=== PATIENT | male | born 1985 | race Caucasian/White ===

== ENCOUNTER 2017-10-28 18:01 | Inpatient (IN) | payer SELFPAY ==
[~2017-10-28] VITALS: Ht 170.2 cm; Wt 69.4 kg
--- OUTSIDE RECORDS SUMMARY | 2017-10-28 18:11 | XMS REPORT ---
Author Author GUICHO NUNES [facility] eClinicalWorks Address Unknown Phone Unavailable Care Team Providers Care Jukebox Routeman Name Role Phone GUICHO NUNES CP Unavailable Allergies, Adverse Reactions, Alerts Substance Reaction Event Type N.K.D.A. Info Not Available Non Drug Allergy Problems Problem Type Condition Code Onset Dates Condition Status Assessment Irritant contact dermatitis due to other agents L24.89 Active Medications Medication Code System Code Instructions Start Date End Date Status Dosage Triamcinolone Acetonide [facility] [id number] 0.1 % Externally Twice a day Jun 07, 2016 1 application to affected area Procedures Procedure Coding System Code Date Office Visit, Est Pt., Level 2 CPT-4 43855 Jun 07, 2016 Vital Signs Date/Time: Jun 07, 2016 Cardiac Monitoring Heart Rate 62 bpm Weight 154 lbs Height 64 in BMI 26.43 Index Blood Pressure Diastolic 72 mmHg Blood Pressure Systolic 98 mmHg Results No Known Results Summary Purpose eClinicalWorks Submission
--- OUTSIDE RECORDS SUMMARY | 2017-10-28 18:11 | XMS REPORT ---
Author Author MIAH CASANOVA Organization eClinicalWorks Address Unknown Phone Unavailable Care Team Providers Care Stove Mounter Name Role Phone MIAH CASANOVA CP Unavailable Allergies No Known Allergies Problems Problem Type Condition ICD-9 Code Onset Dates Condition Status Assessment Dental examination V72.2 Active Medications No Known Medications Procedures Procedure Coding System Code Date INTRAORL-PERIAPICAL 1 FILM 69757 CPT-4 D0220 Jun 24, 2015 INTRAORL-PERIAPICAL EA ADD FILM CPT-4 D0230 Jun 24, 2015 LTD ORAL EVALUATION - PROBLEM FOCUS CPT-4 D0140 Jun 24, 2015 Results No Known Results Summary Purpose eClinicalWorks Submission
--- OUTSIDE RECORDS SUMMARY | 2017-10-28 18:11 | XMS REPORT ---
Author Author GUICHO NUNES [facility] Address [address] [place] [address] Care Team Providers Care Concession Cashier Name Role Phone GUICHO NUNES Unavailable PROBLEMS Unknown Problems ALLERGIES No Information SOCIAL HISTORY Never Assessed PLAN OF CARE VITAL SIGNS MEDICATIONS Unknown Medications RESULTS No Results PROCEDURES No Known procedures IMMUNIZATIONS No Known Immunizations
[2017-10-28] MEDS ORDERED: LACTATED RINGERS 1,000 ML IV ONE (18:26)
[2017-10-28] MEDS ORDERED: NS IV 500 ML 500 ML IV ONE ×2 (18:26→22:15)
[2017-10-28] MEDS ORDERED: PIPERACILLIN SODIUM/TAZOBACTAM 4.5 GM in NS (IVPB) 100 ML IV ONE (18:30)
[2017-10-28] MEDS ORDERED: ONDANSETRON 4 MG/2 ML (SDV) Z0FRAN IVP ONE (18:30)
[2017-10-28] MEDS ORDERED: fentaNYL INJECTION 100 MCG/2 ML AMP IVP ONE ×2 (18:30→19:45)
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
[2017-10-28 18:40] LABS: BASOPHILS # (AUTO) 0.1 10^3/uL (0.0-0.1); BASOPHILS % (AUTO) 0 % (0-10); EOSINOPHILS # (AUTO) 0.1 10^3/uL (0.0-0.3); EOSINOPHILS % (AUTO) 0 % (0-10); HEMATOCRIT 37 % (40-54); HEMOGLOBIN 13.1 G/DL (13.3-17.7); LYMPHOCYTES # (AUTO) 0.9 X 10^3 (1.0-4.0); LYMPHOCYTES % (AUTO) 3 % (12-44); MEAN CORPUSCULAR HEMOGLOBIN 29 PG (25-34); MEAN CORPUSCULAR HGB CONC 35 G/DL (32-36); MEAN CORPUSCULAR VOLUME 83 FL (80-99); MEAN PLATELET VOLUME 10.1 FL (7.4-10.4); MONOCYTES # (AUTO) 1.8 X 10^3 (0.0-1.0); MONOCYTES % (AUTO) 6 % (0-12); NEUTROPHILS % (AUTO) 91 % (42-75); PLATELET COUNT 236 10^3/uL (130-400); RED BLOOD COUNT 4.46 10^6/uL (4.35-5.85); RED CELL DISTRIBUTION WIDTH 13.3 % (10.0-14.5)
[2017-10-28 18:43] LABS: WHITE BLOOD COUNT 31.7 10^3/uL (4.3-11.0)
[2017-10-28 18:49] LABS: INR 1.3 (0.8-1.4); PROTHROMBIN TIME PATIENT 16.4 SEC (12.2-14.7)
[2017-10-28 18:52] LABS: FIBRIN DEGRADATION PRODUCTS 0.96 UG/ML (0.00-0.49)
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
--- NOTE | 2017-10-28 18:57 | Diagnostic Imaging Report ---
INDICATION: Septic. COMPARISON: None. FINDINGS: Single view of the chest demonstrates clear lungs bilaterally. The heart is normal. There is no pneumothorax. Osseous structures normal. IMPRESSION: Negative chest. Dictated by: Dictated on workstation # [id number]
[2017-10-28 18:58] LABS: ALANINE AMINOTRANSFERASE 34 U/L (0-55); ALBUMIN 3.4 GM/DL (3.2-4.5); ALKALINE PHOSPHATASE 100 U/L (40-136); BILIRUBIN,TOTAL 0.8 MG/DL (0.1-1.0); BUN/CREATININE RATIO 14; CALCIUM 8.9 MG/DL (8.5-10.1); CARBON DIOXIDE 22 MMOL/L (21-32); CHLORIDE 99 MMOL/L (98-107); CREATININE SERUM 0.91 MG/DL (0.60-1.30); GFR ESTIMATED > 60; GLUCOSE 159 MG/DL (70-105); SODIUM 133 MMOL/L (135-145); TOTAL PROTEIN 6.6 GM/DL (6.4-8.2)
[2017-10-28 19:00] LABS: BAND NEUTROPHILS 47 %; BASOPHILS % (MANUAL) 0 %; EOSINOPHILS % (MANUAL) 0 %; LYMPHOCYTES % (MANUAL) 3 %; MONOCYTES % (MANUAL) 7 %; NEUTROPHILS % (MANUAL) 46 %
[2017-10-28 19:01] LABS: RBC MORPH NORMAL; TOXIC GRANULATION/VACUOLAZATIO 2+
[2017-10-28] MEDS ORDERED: KCL 10 MEQ TAB (MICRO K) PO ONE (19:30)
[2017-10-28 20:20] VITALS: BP 102/61
[2017-10-28] MEDS ORDERED: ACETAMINOPHEN 500 MG TAB (TYLENOL) ONE (20:29)
[2017-10-28] MEDS ORDERED: VANCOMYCIN 1500 MG/NS 500 ML IVPB IV NR ×2 (20:31)
[2017-10-28] MEDS: ACETAMINOPHEN 500 MG TAB (TYLENOL) PO PRN (20:32)
--- NOTE | 2017-10-28 20:42 | Diagnostic Imaging Report ---
PROCEDURE: US venous upper extremity, left. TECHNIQUE: Multiple realtime grayscale images were obtained of left upper extremity in various projections. Duplex Doppler and and color Doppler images were also obtained. INDICATION: Left upper extremity swelling and pain. COMPARISON: None. FINDINGS: Visualized deep and superficial venous system is patent. There is no mass or DVT. No hematoma identified. There is a nonspecific pulsatile venous system which is likely normal for age. If there is additional concern for vascular injury a CTA may be obtained. IMPRESSION: 1. Negative left upper extremity venous Doppler. No DVT identified. 2. No organized hematoma present. Dictated by: Dictated on workstation # [id number]
[2017-10-28] MEDS: NS IV 1000 ML 1,000 ML IV SCH (20:44)
[2017-10-28] MEDS ORDERED: NS IV 500 ML 500 ML IV SCH (22:15)
[2017-10-29] VITALS (7 sets, daily range): BP systolic 90–134; BP diastolic 51–69
[2017-10-29] MEDS: IBUPROFEN 800 MG (MOTRIN) TAB PO PRN ×2 (00:29→14:24)
[2017-10-29] MEDS: PIPERACILLIN/TAZOBACTAM 4.5 GM/NS 100 ML IVPB IV SCH ×6 (00:29→17:28)
[2017-10-29] MEDS: fentaNYL INJECTION 100 MCG/2 ML AMP IV PRN ×2 (00:29→23:36)
[2017-10-29] MEDS: NS IV 1000 ML 1,000 ML IV SCH ×4 (03:34→20:54)
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
[2017-10-29 06:11] LABS: BASOPHILS # (AUTO) 0.1 10^3/uL (0.0-0.1); BASOPHILS % (AUTO) 0 % (0-10); EOSINOPHILS # (AUTO) 0.1 10^3/uL (0.0-0.3); EOSINOPHILS % (AUTO) 1 % (0-10); HEMATOCRIT 33 % (40-54); HEMOGLOBIN 11.6 G/DL (13.3-17.7); LYMPHOCYTES # (AUTO) 1.1 X 10^3 (1.0-4.0); LYMPHOCYTES % (AUTO) 5 % (12-44); MEAN CORPUSCULAR HEMOGLOBIN 29 PG (25-34); MEAN CORPUSCULAR HGB CONC 35 G/DL (32-36); MEAN CORPUSCULAR VOLUME 84 FL (80-99); MEAN PLATELET VOLUME 10.5 FL (7.4-10.4); MONOCYTES # (AUTO) 1.2 X 10^3 (0.0-1.0); MONOCYTES % (AUTO) 5 % (0-12); NEUTROPHILS # (AUTO) 21.4 X 10^3 (1.8-7.8); NEUTROPHILS % (AUTO) 90 % (42-75); PLATELET COUNT 187 10^3/uL (130-400); RED BLOOD COUNT 3.96 10^6/uL (4.35-5.85); RED CELL DISTRIBUTION WIDTH 13.5 % (10.0-14.5); WHITE BLOOD COUNT 23.8 10^3/uL (4.3-11.0)
[2017-10-29 06:36] LABS: ALANINE AMINOTRANSFERASE 23 U/L (0-55); ALBUMIN 2.7 GM/DL (3.2-4.5); ALKALINE PHOSPHATASE 77 U/L (40-136); BILIRUBIN,TOTAL 0.9 MG/DL (0.1-1.0); BUN/CREATININE RATIO 18; CALCIUM 7.8 MG/DL (8.5-10.1); CARBON DIOXIDE 18 MMOL/L (21-32); CHLORIDE 106 MMOL/L (98-107); GFR ESTIMATED > 60; GLUCOSE 83 MG/DL (70-105); MAGNESIUM 1.3 MG/DL (1.8-2.4); POTASSIUM 3.2 MMOL/L (3.6-5.0); SODIUM 136 MMOL/L (135-145); TOTAL PROTEIN 5.1 GM/DL (6.4-8.2)
[2017-10-29] MEDS ORDERED: INFLUENZA TRIvalent 2017-2018 0.5 ML/45 MCG SYR IM ONE (07:30)
[2017-10-29] MEDS ORDERED: MAGNESIUM 1 GM/100 ML IVPB 100 ML IV SCH (08:00)
[2017-10-29] MEDS ORDERED: KCL 20 MEQ TAB (K-DUR) PO NR (08:00)
[2017-10-29] MEDS: VANCOMYCIN 1 GM/NS 250 ML IVPB IV SCH ×4 (09:31→20:54)
[2017-10-29] MEDS: ENOXAPARIN 40 MG/0.4 ML (LOVENOX) SYR SC SCH (18:50)
[2017-10-30] VITALS: BP 107/55
[2017-10-30] MEDS: PIPERACILLIN/TAZOBACTAM 4.5 GM/NS 100 ML IVPB IV SCH ×10 (00:19→23:38)
[2017-10-30] MEDS: IBUPROFEN 800 MG (MOTRIN) TAB PO PRN ×2 (00:19→14:17)
[2017-10-30] MEDS: NS IV 1000 ML 1,000 ML IV SCH ×4 (02:40→21:31)
[2017-10-30 04:00] VITALS: BP 96/55
[2017-10-30] MEDS ORDERED: TROUGH ORDER-PHARMACY XX NR (07:30)
[2017-10-30 08:07] VITALS: BP 98/59
[2017-10-30 08:17] LABS: BASOPHILS # (AUTO) 0.1 10^3/uL (0.0-0.1); BASOPHILS % (AUTO) 0 % (0-10); EOSINOPHILS # (AUTO) 0.4 10^3/uL (0.0-0.3); EOSINOPHILS % (AUTO) 2 % (0-10); HEMATOCRIT 32 % (40-54); HEMOGLOBIN 11.6 G/DL (13.3-17.7); LYMPHOCYTES # (AUTO) 1.6 X 10^3 (1.0-4.0); LYMPHOCYTES % (AUTO) 5 % (12-44); MEAN CORPUSCULAR HEMOGLOBIN 30 PG (25-34); MEAN CORPUSCULAR HGB CONC 36 G/DL (32-36); MEAN CORPUSCULAR VOLUME 83 FL (80-99); MEAN PLATELET VOLUME 10.5 FL (7.4-10.4); MONOCYTES # (AUTO) 1.1 X 10^3 (0.0-1.0); MONOCYTES % (AUTO) 4 % (0-12); NEUTROPHILS # (AUTO) 26.4 X 10^3 (1.8-7.8); NEUTROPHILS % (AUTO) 89 % (42-75); PLATELET COUNT 220 10^3/uL (130-400); RED BLOOD COUNT 3.92 10^6/uL (4.35-5.85); RED CELL DISTRIBUTION WIDTH 13.9 % (10.0-14.5); WHITE BLOOD COUNT 29.6 10^3/uL (4.3-11.0)
[2017-10-30 08:39] LABS: ALANINE AMINOTRANSFERASE 22 U/L (0-55); ALBUMIN 2.4 GM/DL (3.2-4.5); ALKALINE PHOSPHATASE 88 U/L (40-136); BILIRUBIN,TOTAL 0.5 MG/DL (0.1-1.0); BUN/CREATININE RATIO 17; CALCIUM 7.9 MG/DL (8.5-10.1); CARBON DIOXIDE 18 MMOL/L (21-32); CHLORIDE 108 MMOL/L (98-107); CREATININE SERUM 0.66 MG/DL (0.60-1.30); GFR ESTIMATED > 60; GLUCOSE 84 MG/DL (70-105); POTASSIUM 2.9 MMOL/L (3.6-5.0); SODIUM 137 MMOL/L (135-145)
[2017-10-30] MEDS: VANCOMYCIN INJECTION 1,250 MG in NS (IVPB) 250 ML IV SCH ×2 (09:37→17:05)
[2017-10-30 12:04] VITALS: BP 113/60
[2017-10-30] MEDS: ACETAMINOPHEN 500 MG TAB (TYLENOL) PO PRN (13:00)
--- NOTE | 2017-10-30 14:22 | Progress Note (SOAP) ---
Subjective Subjective/Events-last exam Patient reports feeling feverish at the time of exam - temp was checked and is 100.5. He denies pain in his arm, just reports that it feels "tight" from the swelling. Temp was as high as 103 yesterday. No other complaints or concerns from patient. No concerns from nursing staff. Review of Systems Date Seen by Provider: Oct 30, 2017 Time Seen by Provider: 12:05 General: Chills, Night Sweats, Malaise HEENT: Head Aches (only with fever), No Visual Changes, No Eye Pain, No Sinus Congestion Pulmonary: No Dyspnea, No Cough Cardiovascular: Edema (left arm), No: Chest Pain, Palpitations, Orthopnea Gastrointestinal: No: Nausea, Vomiting Genitourinary: No Dysuria, No Incontinence Musculoskeletal: arm pain Neurological: No: Weakness, Numbness Objective Exam Last Set of Vital Signs Vital Signs Date Time Temp Pulse Resp B/P (MAP) Pulse Ox O2 Delivery O2 Flow Rate FiO2 10/30/17 14:17 101.5 10/30/17 12:04 113 18 113/60 (77) 97 Room Air Capillary Refill : Less Than 3 Seconds I&O Intake and Output 10/30/17 00:00 Intake Total 2690 ml Output Total 300 ml Balance 2390 ml Intake Oral 1140 ml IV Total 1550 ml Output Urine Total 300 ml # Voids 5 General: Alert, Oriented X3, Cooperative, No Acute Distress HEENT: Atraumatic, PERRLA, EOMI, Mucous Memb Moist/[place] Neck: Supple, No JVD, No Thyromegaly Lungs: Clear to Auscultation, Normal Air Movement Heart: Regular Rate, Normal S1, Normal S2, No Murmurs Abdomen: Normal Bowel Sounds, Soft, No Tenderness, No Hepatosplenomegaly Extremities: No Clubbing, No Cyanosis, Other (left arm swollen and tender to palpation on the inner aspect) Skin: No Breakdown, Other (redness on inner aspect of left upper arm) Neuro: Normal Gait, Normal Speech, Normal Tone, Sensation Intact, Cranial Nerves 3-12 NL Psych/Mental Status: Mental Status NL, Mood NL Results/Procedures Lab Laboratory Tests 10/30/17 07:48: White Blood Count 29.6H, Red Blood Count 3.92L, Hemoglobin 11.6L, Hematocrit 32L , Mean Corpuscular Volume 83, Mean Corpuscular Hemoglobin 30, Mean Corpuscular Hemoglobin Concent 36, Red Cell Distribution Width 13.9, Platelet Count 220, Mean Platelet Volume 10.5H, Neutrophils (%) (Auto) 89H, Lymphocytes (%) (Auto) 5L, Monocytes (%) (Auto) 4, Eosinophils (%) (Auto) 2, Basophils (%) (Auto) 0, Neutrophils # (Auto) 26.4H, Lymphocytes # (Auto) 1.6, Monocytes # (Auto) 1.1H, Eosinophils # (Auto) 0.4H, Basophils # (Auto) 0.1, Sodium Level 137, Potassium Level 2.9L, Chloride Level 108H, Carbon Dioxide Level 18L, Anion Gap 11, Blood Urea Nitrogen 11, Creatinine 0.66, Estimat Glomerular Filtration Rate > 60, BUN/ Creatinine Ratio 17, Glucose Level 84, Calcium Level 7.9L, Total Bilirubin 0.5, Aspartate Amino Transf (AST/SGOT) 19, Alanine Aminotransferase (ALT/SGPT) 22, Alkaline Phosphatase 88, C-Reactive Protein High Sensitivity > 15.00H, Total Protein 5.0L, Albumin 2.4L, Vancomycin Level Trough 6.4L Microbiology 10/28/17 Blood Culture - Preliminary, Resulted No growth Assessment/Plan Assessment/Plan Admission Dx Sepsis secondary to Cellulitis Cellulitis of Left Arm 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 Plan Sepsis secondary to cellulitis: 10/29: -started on Vanc and Zosyn in ED, currently on Day 2 -significantly elevated WBC count as well as left shift -no evidence of clot or abscess noted on imaging studies -afebrile since admission -initially elevated lactate, which responded to fluid bolus and is now WNL -ibuprofen, fentanyl, tylenol PRN pain - last doses given at around midnight -culture results pending, will narrow abx therapy when results returned -CRP >15 -Left arm edema, will wrap with compression to see if that helps; pt reports that his left upper arm is always slightly swollen since his surgery, but currently his swelling extends into his forearm as well 10/30: -blood cx show no growth to date, white count elevated from yesterday, CRP remains >15, febrile to Tmax 103 yesterday afternoon, will continue Zosyn, recheck labs in AM Hypokalemia 10/30: replace with 40 mEq PO, recheck BMP in AM Hypocalcemia 10/30: recheck BMP in AM Hypoalbuminemia DVT Ppx: Lovenox, SCDs, Ambulation FEN: Regular Diet Dispo: Due to sepsis, patient requires inpatient level of care for IV antibiotics at this time; anticipate the patient will require another 24-48 hours before being able to safely transition to PO antibiotics and be discharged to home. Clinical Quality Measures DVT/VTE Risk/Contraindication: Risk Factor Score Per Nursin RFS Level Per Nursing on Admit: 4+=Very High RAGHU LLOYD DO Oct 30, 2017 14:22
[2017-10-30] MEDS ORDERED: KCL 20 MEQ TAB (K-DUR) PO NR (14:45)
[2017-10-30 16:34] VITALS: BP 109/70
[2017-10-30] MEDS: ENOXAPARIN 40 MG/0.4 ML (LOVENOX) SYR SC SCH (17:06)
[2017-10-30 19:56] VITALS: BP 102/69
[2017-10-31] VITALS (7 sets, daily range): BP systolic 91–120; BP diastolic 51–66
[2017-10-31] MEDS: IBUPROFEN 800 MG (MOTRIN) TAB PO PRN ×2 (00:43→16:09)
[2017-10-31] MEDS: VANCOMYCIN INJECTION 1,250 MG in NS (IVPB) 250 ML IV SCH ×3 (00:44→17:37)
[2017-10-31] MEDS: NS IV 1000 ML 1,000 ML IV SCH ×3 (00:46→15:57)
[2017-10-31] MEDS: ACETAMINOPHEN 500 MG TAB (TYLENOL) PO PRN ×2 (01:23→16:08)
[2017-10-31 05:55] LABS: BASOPHILS # (AUTO) 0.1 10^3/uL (0.0-0.1); BASOPHILS % (AUTO) 0 % (0-10); EOSINOPHILS # (AUTO) 0.4 10^3/uL (0.0-0.3); EOSINOPHILS % (AUTO) 1 % (0-10); HEMATOCRIT 32 % (40-54); HEMOGLOBIN 11.3 G/DL (13.3-17.7); LYMPHOCYTES % (AUTO) 7 % (12-44); MEAN CORPUSCULAR HEMOGLOBIN 29 PG (25-34); MEAN CORPUSCULAR HGB CONC 36 G/DL (32-36); MEAN CORPUSCULAR VOLUME 82 FL (80-99); MEAN PLATELET VOLUME 10.5 FL (7.4-10.4); MONOCYTES # (AUTO) 1.4 X 10^3 (0.0-1.0); MONOCYTES % (AUTO) 5 % (0-12); NEUTROPHILS # (AUTO) 25.2 X 10^3 (1.8-7.8); NEUTROPHILS % (AUTO) 87 % (42-75); PLATELET COUNT 248 10^3/uL (130-400); RED BLOOD COUNT 3.85 10^6/uL (4.35-5.85)
[2017-10-31 06:18] LABS: ALANINE AMINOTRANSFERASE 25 U/L (0-55); ALBUMIN 2.2 GM/DL (3.2-4.5); ALKALINE PHOSPHATASE 116 U/L (40-136); BILIRUBIN,TOTAL 0.6 MG/DL (0.1-1.0); BUN/CREATININE RATIO 15; CALCIUM 7.8 MG/DL (8.5-10.1); CARBON DIOXIDE 18 MMOL/L (21-32); CHLORIDE 109 MMOL/L (98-107); CREATININE SERUM 0.62 MG/DL (0.60-1.30); GFR ESTIMATED > 60; GLUCOSE 82 MG/DL (70-105); POTASSIUM 2.8 MMOL/L (3.6-5.0); SODIUM 138 MMOL/L (135-145); TOTAL PROTEIN 4.8 GM/DL (6.4-8.2)
[2017-10-31] MEDS ORDERED: TROUGH ORDER-PHARMACY XX NR ×2 (08:00→16:00)
--- NOTE | 2017-10-31 08:37 | Progress Note (SOAP) ---
Subjective Subjective/Events-last exam Patient denies complaints and is hoping to go home. Febrile to 101.7 overnight. Patient feels arm is less swollen than yesterday. Has developed surface blister near inner aspect of elbow where it has been resting on pillow. Other than fever, no acute events overnight. No concerns from nursing staff. Review of Systems Date Seen by Provider: Oct 31, 2017 Time Seen by Provider: 12:00 General: Chills, No Fatigue, No Malaise HEENT: No Head Aches, No Dysphasia, No Sore Throat Pulmonary: No Dyspnea, No Cough Cardiovascular: Edema (left upper extremity), No: Chest Pain, Palpitations Gastrointestinal: No: Nausea, Vomiting, Abdominal Pain Genitourinary: No Dysuria, No Frequency Musculoskeletal: arm pain (left arm), No: neck pain, shoulder pain, back pain, leg pain Neurological: No: Weakness, Numbness, Incoordination, Change in speech, Seizures Objective Exam Last Set of Vital Signs Vital Signs Date Time Temp Pulse Resp B/P (MAP) Pulse Ox O2 Delivery O2 Flow Rate FiO2 10/31/17 08:19 97.7 84 18 91/57 (68) 99 Room Air Capillary Refill : Less Than 3 Seconds I&O Intake and Output 10/31/17 00:00 Intake Total 3400 ml Output Total 600 ml Balance 2800 ml Intake Oral 1050 ml IV Total 2350 ml Output Urine Total 600 ml # Voids 3 General: Alert, Oriented X3, Cooperative, No Acute Distress HEENT: Atraumatic, PERRLA, EOMI, Mucous Memb Moist/[place] Neck: Supple, No JVD, No Thyromegaly Lungs: Clear to Auscultation, Normal Air Movement Heart: Regular Rate, Normal S1, Normal S2, No Murmurs Abdomen: Normal Bowel Sounds, Soft, No Tenderness Extremities: No Clubbing, No Cyanosis, Normal Pulses, Other (left arm swollen with mild warmth and erythema; improved from previous days) Skin: No Rashes, Other (fluid filled ~2 cm blister on inner aspect of forearm near elbow) Neuro: Normal Speech, Normal Tone, Sensation Intact, Cranial Nerves 3-12 NL Psych/Mental Status: Mental Status NL, Mood NL Results/Procedures Lab Laboratory Tests 10/31/17 05:33: White Blood Count 29.0H, Red Blood Count 3.85L, Hemoglobin 11.3L, Hematocrit 32L , Mean Corpuscular Volume 82, Mean Corpuscular Hemoglobin 29, Mean Corpuscular Hemoglobin Concent 36, Red Cell Distribution Width 14.0, Platelet Count 248, Mean Platelet Volume 10.5H, Neutrophils (%) (Auto) 87H, Lymphocytes (%) (Auto) 7L, Monocytes (%) (Auto) 5, Eosinophils (%) (Auto) 1, Basophils (%) (Auto) 0, Neutrophils # (Auto) 25.2H, Lymphocytes # (Auto) 2.0, Monocytes # (Auto) 1.4H, Eosinophils # (Auto) 0.4H, Basophils # (Auto) 0.1, Sodium Level 138, Potassium Level 2.8L, Chloride Level 109H, Carbon Dioxide Level 18L, Anion Gap 11, Blood Urea Nitrogen 9, Creatinine 0.62, Estimat Glomerular Filtration Rate > 60, BUN/ Creatinine Ratio 15, Glucose Level 82, Calcium Level 7.8L, Total Bilirubin 0.6, Aspartate Amino Transf (AST/SGOT) 24, Alanine Aminotransferase (ALT/SGPT) 25, Alkaline Phosphatase 116, C-Reactive Protein High Sensitivity > 15.00H, Total Protein 4.8L, Albumin 2.2L 10/31/17 08:20: Microbiology 10/28/17 Blood Culture - Preliminary, Resulted No growth Assessment/Plan Assessment/Plan Admission Dx Sepsis Left Arm Cellulitis Fever Plan Sepsis secondary to cellulitis: 10/29: -started on Vanc and Zosyn in ED, currently on Day 2 -significantly elevated WBC count as well as left shift -no evidence of clot or abscess noted on imaging studies -afebrile since admission -initially elevated lactate, which responded to fluid bolus and is now WNL -ibuprofen, fentanyl, tylenol PRN pain - last doses given at around midnight -culture results pending, will narrow abx therapy when results returned -CRP >15 -Left arm edema, will wrap with compression to see if that helps; pt reports that his left upper arm is always slightly swollen since his surgery, but currently his swelling extends into his forearm as well 10/30: -blood cx show no growth to date, white count elevated from yesterday, CRP remains >15, febrile to Tmax 103 yesterday afternoon, will continue Zosyn and Vanc, recheck labs in AM 10/31: blood cx continue to show no growth to date, white count remains elevated at 29, but stable from yesterday, CRP remains >15, febrile overnight with Tmax 101.7; US done to rule out abscess --> no evidence of abscess. Given that fevers seem to be somewhat improved from previous and Vanc dosing was adjusted after subtherapeutic level, will continue with current broad spectrum abx, recheck labs in AM. Hypokalemia 10/30: replace with 40 mEq PO, recheck BMP in AM 10/31: remains low, replaced again today and recheck in AM Hypocalcemia 10/30: recheck BMP in AM Hypoalbuminemia DVT Ppx: Lovenox, SCDs, Ambulation FEN: Regular Diet Dispo: Due to sepsis, patient requires inpatient level of care for IV antibiotics at this time; anticipate the patient will require another 24-48 hours before being able to safely transition to PO antibiotics and be discharged to home. Clinical Quality Measures DVT/VTE Risk/Contraindication: Risk Factor Score Per Nursin RFS Level Per Nursing on Admit: 4+=Very High RAGHU LLOYD DO Oct 31, 2017 08:37
[2017-10-31] MEDS ORDERED: KCL 20 MEQ TAB (K-DUR) PO NR (08:45)
[2017-10-31] MEDS: PIPERACILLIN/TAZOBACTAM 4.5 GM/NS 100 ML IVPB IV SCH ×4 (08:54→15:58)
--- NOTE | 2017-10-31 11:10 | Diagnostic Imaging Report ---
INDICATION: Fever. Evaluate for abscess. FINDINGS: Grayscale imaging of the left upper arm and axillary region demonstrates a large degree of subcutaneous edema but no focal fluid collection to suggest abscess. IMPRESSION: 1. Sonographic imaging of the left upper arm and axillary region demonstrates edema but no focal fluid collection to suggest abscess. Dictated by: Dictated on workstation # [id number]
[2017-10-31] MEDS: ENOXAPARIN 40 MG/0.4 ML (LOVENOX) SYR SC SCH (17:37)
[2017-11-01] MEDS: VANCOMYCIN INJECTION 1,250 MG in NS (IVPB) 250 ML IV SCH ×2 (00:23→08:53)
[2017-11-01 00:41] VITALS: BP 116/67
[2017-11-01] MEDS: PIPERACILLIN/TAZOBACTAM 4.5 GM/NS 100 ML IVPB IV SCH ×4 (00:45→08:53)
[2017-11-01] MEDS: IBUPROFEN 800 MG (MOTRIN) TAB PO PRN ×2 (03:33→10:40)
[2017-11-01 04:45] VITALS: BP 109/64
[2017-11-01] MEDS: ACETAMINOPHEN 500 MG TAB (TYLENOL) PO PRN ×3 (05:55→21:23)
[2017-11-01] MEDS: NS IV 1000 ML 1,000 ML IV SCH ×5 (05:55→18:26)
[2017-11-01 06:18] LABS: BASOPHILS # (AUTO) 0.1 10^3/uL (0.0-0.1); BASOPHILS % (AUTO) 0 % (0-10); EOSINOPHILS # (AUTO) 0.4 10^3/uL (0.0-0.3); EOSINOPHILS % (AUTO) 1 % (0-10); HEMATOCRIT 32 % (40-54); HEMOGLOBIN 11.4 G/DL (13.3-17.7); LYMPHOCYTES # (AUTO) 2.1 X 10^3 (1.0-4.0); LYMPHOCYTES % (AUTO) 7 % (12-44); MEAN CORPUSCULAR HEMOGLOBIN 29 PG (25-34); MEAN CORPUSCULAR HGB CONC 36 G/DL (32-36); MEAN CORPUSCULAR VOLUME 82 FL (80-99); MEAN PLATELET VOLUME 10.6 FL (7.4-10.4); MONOCYTES # (AUTO) 1.6 X 10^3 (0.0-1.0); MONOCYTES % (AUTO) 5 % (0-12); NEUTROPHILS # (AUTO) 26.6 X 10^3 (1.8-7.8); NEUTROPHILS % (AUTO) 86 % (42-75); PLATELET COUNT 246 10^3/uL (130-400); RED BLOOD COUNT 3.91 10^6/uL (4.35-5.85); RED CELL DISTRIBUTION WIDTH 14.3 % (10.0-14.5)
[2017-11-01 06:31] LABS: WHITE BLOOD COUNT 30.8 10^3/uL (4.3-11.0)
[2017-11-01 06:41] LABS: ALANINE AMINOTRANSFERASE 25 U/L (0-55); ALBUMIN 2.1 GM/DL (3.2-4.5); ALKALINE PHOSPHATASE 138 U/L (40-136); BILIRUBIN,TOTAL 0.6 MG/DL (0.1-1.0); BUN/CREATININE RATIO 13; CALCIUM 7.7 MG/DL (8.5-10.1); CARBON DIOXIDE 20 MMOL/L (21-32); CHLORIDE 107 MMOL/L (98-107); CREATININE SERUM 0.63 MG/DL (0.60-1.30); GFR ESTIMATED > 60; GLUCOSE 89 MG/DL (70-105); POTASSIUM 2.6 MMOL/L (3.6-5.0); SODIUM 138 MMOL/L (135-145); TOTAL PROTEIN 4.9 GM/DL (6.4-8.2)
[2017-11-01 08:00] VITALS: BP 123/68
[2017-11-01] MEDS ORDERED: KCL 20 MEQ TAB (K-DUR) PO NR (09:45)
[2017-11-01] MEDS: POTASSIUM CL 10MEQ/50ML IVPB 50 ML IV SCH ×4 (10:39→13:12)
[2017-11-01 12:00] VITALS: BP 117/75
--- NOTE | 2017-11-01 12:01 | Progress Note (SOAP) ---
Subjective Subjective/Events-last exam Febrile to Tmax 103 at 1609 yesterday. He feels weak but generally better, his arm is less painful and less red, but the swelling persists. He denies pain in his elbow or shoulder. Review of Systems Date Seen by Provider: Nov 01, 2017 Time Seen by Provider: 10:20 Objective Exam Last Set of Vital Signs Vital Signs Date Time Temp Pulse Resp B/P (MAP) Pulse Ox O2 Delivery O2 Flow Rate FiO2 11/01/17 08:00 97.8 82 16 123/68 (86) 99 Room Air Capillary Refill : Less Than 3 Seconds I&O Intake and Output 11/01/17 00:00 Intake Total 2140 ml Balance 2140 ml Intake Oral 1140 ml IV Total 1000 ml # Voids 9 # Bowel Movements 1 General: Alert, No Acute Distress Lungs: Clear to Auscultation, Normal Air Movement Heart: Regular Rate, No Murmurs Extremities: Other (Left arm with edema throughout and erythema from edge of axilla to below elbow, more pronounced on underside, edema extends into dorsum of hand and all digits) Neuro: Normal Speech Psych/Mental Status: Mental Status NL Results/Procedures Lab Laboratory Tests 11/01/17 05:35: White Blood Count 30.8*H, Red Blood Count 3.91L, Hemoglobin 11.4L, Hematocrit 32L, Mean Corpuscular Volume 82, Mean Corpuscular Hemoglobin 29, Mean Corpuscular Hemoglobin Concent 36, Red Cell Distribution Width 14.3, Platelet Count 246, Mean Platelet Volume 10.6H, Neutrophils (%) (Auto) 86H, Lymphocytes ( %) (Auto) 7L, Monocytes (%) (Auto) 5, Eosinophils (%) (Auto) 1, Basophils (%) ( Auto) 0, Neutrophils # (Auto) 26.6H, Lymphocytes # (Auto) 2.1, Monocytes # (Auto ) 1.6H, Eosinophils # (Auto) 0.4H, Basophils # (Auto) 0.1, Sodium Level 138, Potassium Level 2.6L, Chloride Level 107, Carbon Dioxide Level 20L, Anion Gap 11 , Blood Urea Nitrogen 8, Creatinine 0.63, Estimat Glomerular Filtration Rate > 60, BUN/Creatinine Ratio 13, Glucose Level 89, Calcium Level 7.7L, Magnesium Level 1.4L, Total Bilirubin 0.6, Aspartate Amino Transf (AST/SGOT) 27, Alanine Aminotransferase (ALT/SGPT) 25, Alkaline Phosphatase 138H, C-Reactive Protein High Sensitivity > 15.00H, Total Protein 4.9L, Albumin 2.1L Microbiology 10/28/17 Blood Culture - Preliminary, Resulted No growth Assessment/Plan Assessment/Plan Plan Sepsis secondary to cellulitis: 10/29: -started on Vanc and Zosyn in ED -significantly elevated WBC count as well as left shift -no evidence of clot or abscess noted on imaging studies -initially elevated lactate, which responded to fluid bolus and is now WNL -culture results pending, will narrow abx therapy when results returned -Left arm edema, will wrap with compression to see if that helps; pt reports that his left upper arm is always slightly swollen since his surgery, but currently his swelling extends into his forearm as well 10/30: -blood cx show no growth to date, white count elevated from yesterday, CRP remains >15, febrile to Tmax 103 yesterday afternoon, will continue Zosyn and Vanc, recheck labs in AM 10/31: blood cx continue to show no growth to date, white count remains elevated at 29, but stable from yesterday, CRP remains >15, febrile overnight with Tmax 101.7; US done to rule out abscess --> no evidence of abscess. Given that fevers seem to be somewhat improved from previous and Vanc dosing was adjusted after subtherapeutic level, will continue with current broad spectrum abx, recheck labs in AM. 11/01: recurrent fever up to 103 persists as well as leukocytosis of 30 this morning. Will change antibiotics to meropenem and linezolid. No abscess noted on ultrasound and no evidence of joint involvement per symptoms. Hypokalemia 10/30: replace with 40 mEq PO, recheck BMP in AM 10/31: remains low, replaced again today and recheck in AM 11/01: remains low, replace IV and PO and replace magnesium Hypocalcemia 10/30: recheck BMP in AM Hypoalbuminemia Hypomagnesemia- follow and replace as needed DVT Ppx: Lovenox, SCDs, Ambulation FEN: Regular Diet Clinical Quality Measures DVT/VTE Risk/Contraindication: Risk Factor Score Per Nursin RFS Level Per Nursing on Admit: 4+=Very High JOSYE MATHIS MD Nov 01, 2017 12:01 pm
[2017-11-01] MEDS: MAGNESIUM 1 GM/100 ML IVPB 100 ML IV SCH ×2 (13:05→13:12)
[2017-11-01] MEDS: MEROPENEM 500 MG/NS 100 ML IVPB IV SCH ×6 (13:05→23:19)
[2017-11-01] MEDS: LINEZOLID (ZYVOX) 600 MG TAB PO SCH ×2 (13:12→21:23)
[2017-11-01] MEDS ORDERED: MEROPENEM 1,000 MG in NS (IVPB) 100 ML IV SCH (14:00)
[2017-11-01] MEDS: ONDANSETRON 4 MG/2 ML (SDV) Z0FRAN IV PRN (15:44)
[2017-11-01 16:00] VITALS: BP 136/76
[2017-11-01] MEDS: ENOXAPARIN 40 MG/0.4 ML (LOVENOX) SYR SC SCH (16:25)
[2017-11-01 20:00] VITALS: BP 152/82
[2017-11-02 00:37] VITALS: BP 142/71
[2017-11-02] MEDS: IBUPROFEN 800 MG (MOTRIN) TAB PO PRN ×3 (01:30→17:05)
[2017-11-02] MEDS: NS IV 1000 ML 1,000 ML IV SCH ×3 (01:30→17:04)
[2017-11-02 04:10] VITALS: BP 137/67
[2017-11-02] MEDS: MEROPENEM 500 MG/NS 100 ML IVPB IV SCH ×6 (05:09→17:04)
[2017-11-02 06:25] LABS: BASOPHILS # (AUTO) 0.1 10^3/uL (0.0-0.1); BASOPHILS % (AUTO) 1 % (0-10); EOSINOPHILS # (AUTO) 0.6 10^3/uL (0.0-0.3); EOSINOPHILS % (AUTO) 2 % (0-10); HEMATOCRIT 30 % (40-54); HEMOGLOBIN 10.6 G/DL (13.3-17.7); LYMPHOCYTES # (AUTO) 2.4 X 10^3 (1.0-4.0); LYMPHOCYTES % (AUTO) 9 % (12-44); MEAN CORPUSCULAR HEMOGLOBIN 29 PG (25-34); MEAN CORPUSCULAR HGB CONC 35 G/DL (32-36); MEAN CORPUSCULAR VOLUME 82 FL (80-99); MEAN PLATELET VOLUME 10.4 FL (7.4-10.4); MONOCYTES # (AUTO) 1.6 X 10^3 (0.0-1.0); MONOCYTES % (AUTO) 6 % (0-12); NEUTROPHILS % (AUTO) 84 % (42-75); PLATELET COUNT 269 10^3/uL (130-400); RED BLOOD COUNT 3.65 10^6/uL (4.35-5.85); RED CELL DISTRIBUTION WIDTH 14.6 % (10.0-14.5); WHITE BLOOD COUNT 28.7 10^3/uL (4.3-11.0)
[2017-11-02 07:02] LABS: ALANINE AMINOTRANSFERASE 47 U/L (0-55); ALBUMIN 2.1 GM/DL (3.2-4.5); ALKALINE PHOSPHATASE 183 U/L (40-136); BILIRUBIN,TOTAL 0.4 MG/DL (0.1-1.0); BUN/CREATININE RATIO 11; CALCIUM 7.6 MG/DL (8.5-10.1); CARBON DIOXIDE 20 MMOL/L (21-32); CHLORIDE 109 MMOL/L (98-107); CREATININE SERUM 0.56 MG/DL (0.60-1.30); GFR ESTIMATED > 60; GLUCOSE 81 MG/DL (70-105); MAGNESIUM 1.6 MG/DL (1.8-2.4); POTASSIUM 2.8 MMOL/L (3.6-5.0); SODIUM 140 MMOL/L (135-145); TOTAL PROTEIN 4.8 GM/DL (6.4-8.2)
[2017-11-02 08:00] VITALS: BP 130/70
[2017-11-02] MEDS: LINEZOLID (ZYVOX) 600 MG TAB PO SCH ×2 (08:51→20:51)
[2017-11-02] MEDS: ACETAMINOPHEN 500 MG TAB (TYLENOL) PO PRN (08:53)
[2017-11-02] MEDS: MAGNESIUM 1 GM/100 ML IVPB 100 ML IV SCH ×5 (09:03→23:23)
[2017-11-02] MEDS ORDERED: KCL 20 MEQ TAB (K-DUR) PO ONE (09:03)
[2017-11-02] MEDS: POTASSIUM CL 10MEQ/50ML IVPB 50 ML IV SCH ×8 (09:03→23:22)
[2017-11-02] MEDS: KCL 20 MEQ TAB (K-DUR) PO SCH ×2 (09:05→20:51)
[2017-11-02] MEDS: ONDANSETRON 4 MG/2 ML (SDV) Z0FRAN IV PRN (09:30)
--- NOTE | 2017-11-02 10:46 | Progress Note (SOAP) ---
Subjective Subjective/Events-last exam Afebrile, no acute events. He is still feeling weak, but denies pain. He feels like his feet and abdomen are swollen, but denies abdominal pain, vomiting or diarrhea. Review of Systems Date Seen by Provider: Nov 02, 2017 Time Seen by Provider: 10:05 Objective Exam Last Set of Vital Signs Vital Signs Date Time Temp Pulse Resp B/P (MAP) Pulse Ox O2 Delivery O2 Flow Rate FiO2 11/02/17 09:00 Room Air 11/02/17 08:00 98.5 79 20 130/70 (90) 98 Capillary Refill : Less Than 3 Seconds I&O Intake and Output 11/02/17 00:00 Intake Total 3860 ml Balance 3860 ml Intake Oral 1560 ml IV Total 2300 ml # Voids 8 # Bowel Movements 1 General: Alert, No Acute Distress Extremities: Other (left arm with erythema along undersurface and swollen throughout including dorsum of hand and fingers, with noticeable decrease in swelling of upper arm compared to yesterday) Results/Procedures Lab Laboratory Tests 11/02/17 05:44: White Blood Count 28.7H, Red Blood Count 3.65L, Hemoglobin 10.6L, Hematocrit 30L , Mean Corpuscular Volume 82, Mean Corpuscular Hemoglobin 29, Mean Corpuscular Hemoglobin Concent 35, Red Cell Distribution Width 14.6H, Platelet Count 269, Mean Platelet Volume 10.4, Neutrophils (%) (Auto) 84H, Lymphocytes (%) (Auto) 9L , Monocytes (%) (Auto) 6, Eosinophils (%) (Auto) 2, Basophils (%) (Auto) 1, Neutrophils # (Auto) 24.0H, Lymphocytes # (Auto) 2.4, Monocytes # (Auto) 1.6H, Eosinophils # (Auto) 0.6H, Basophils # (Auto) 0.1, Sodium Level 140, Potassium Level 2.8L, Chloride Level 109H, Carbon Dioxide Level 20L, Anion Gap 11, Blood Urea Nitrogen 6L, Creatinine 0.56L, Estimat Glomerular Filtration Rate > 60, BUN /Creatinine Ratio 11, Glucose Level 81, Calcium Level 7.6L, Magnesium Level 1.6L , Total Bilirubin 0.4, Aspartate Amino Transf (AST/SGOT) 69H, Alanine Aminotransferase (ALT/SGPT) 47, Alkaline Phosphatase 183H, C-Reactive Protein High Sensitivity 13.12H, Total Protein 4.8L, Albumin 2.1L 11/02/17 05:50: Microbiology 10/28/17 Blood Culture - Preliminary, Resulted No growth Assessment/Plan Assessment/Plan Plan Sepsis secondary to cellulitis: 10/29: -started on Vanc and Zosyn in ED -significantly elevated WBC count as well as left shift -no evidence of clot or abscess noted on imaging studies -initially elevated lactate, which responded to fluid bolus and is now WNL -culture results pending, will narrow abx therapy when results returned -Left arm edema, will wrap with compression to see if that helps; pt reports that his left upper arm is always slightly swollen since his surgery, but currently his swelling extends into his forearm as well 10/30: -blood cx show no growth to date, white count elevated from yesterday, CRP remains >15, febrile to Tmax 103 yesterday afternoon, will continue Zosyn and Vanc, recheck labs in AM 10/31: blood cx continue to show no growth to date, white count remains elevated at 29, but stable from yesterday, CRP remains >15, febrile overnight with Tmax 101.7; US done to rule out abscess --> no evidence of abscess. Given that fevers seem to be somewhat improved from previous and Vanc dosing was adjusted after subtherapeutic level, will continue with current broad spectrum abx, recheck labs in AM. 11/01: recurrent fever up to 103 persists as well as leukocytosis of 30 this morning. Will change antibiotics to meropenem and linezolid. No abscess noted on ultrasound and no evidence of joint involvement per symptoms. 11/02: afebrile last 24 hours, WBC slightly decreased and CRP decreased, continue meropenem and linezolid, d/c acetaminophen to watch for recurrent fevers Hypokalemia 10/30: replace with 40 mEq PO, recheck BMP in AM 10/31: remains low, replaced again today and recheck in AM 11/01: remains low, replace IV and PO and replace magnesium 11/02: persistent, replace aggressively and recheck this evening Hypocalcemia 10/30: recheck BMP in AM Hypoalbuminemia Hypomagnesemia- follow and replace as needed DVT Ppx: Lovenox, SCDs, Ambulation FEN: Regular Diet Clinical Quality Measures DVT/VTE Risk/Contraindication: Risk Factor Score Per Nursin RFS Level Per Nursing on Admit: 4+=Very High JOSEY MATHIS MD Nov 02, 2017 10:46 am
[2017-11-02 16:00] VITALS: BP 113/76
[2017-11-02] MEDS: ENOXAPARIN 40 MG/0.4 ML (LOVENOX) SYR SC SCH (17:04)
[2017-11-02 19:33] LABS: BUN/CREATININE RATIO 9; CALCIUM 7.8 MG/DL (8.5-10.1); CARBON DIOXIDE 21 MMOL/L (21-32); CHLORIDE 105 MMOL/L (98-107); CREATININE SERUM 0.55 MG/DL (0.60-1.30); GFR ESTIMATED > 60; GLUCOSE 104 MG/DL (70-105); MAGNESIUM 1.7 MG/DL (1.8-2.4); POTASSIUM 3.3 MMOL/L (3.6-5.0); SODIUM 139 MMOL/L (135-145)
[2017-11-03] VITALS: BP 126/75
[2017-11-03] MEDS: POTASSIUM CL 10MEQ/50ML IVPB 50 ML IV SCH ×2 (00:27→01:37)
[2017-11-03] MEDS: MEROPENEM 500 MG/NS 100 ML IVPB IV SCH ×8 (00:27→17:16)
[2017-11-03 06:42] LABS: ALANINE AMINOTRANSFERASE 147 U/L (0-55); ALBUMIN 2.3 GM/DL (3.2-4.5); ALKALINE PHOSPHATASE 184 U/L (40-136); BILIRUBIN,TOTAL 0.4 MG/DL (0.1-1.0); BUN/CREATININE RATIO 9; CALCIUM 7.8 MG/DL (8.5-10.1); CARBON DIOXIDE 24 MMOL/L (21-32); CHLORIDE 103 MMOL/L (98-107); CREATININE SERUM 0.58 MG/DL (0.60-1.30); GFR ESTIMATED > 60; GLUCOSE 89 MG/DL (70-105); MAGNESIUM 1.7 MG/DL (1.8-2.4); POTASSIUM 3.8 MMOL/L (3.6-5.0); SODIUM 137 MMOL/L (135-145); TOTAL PROTEIN 4.4 GM/DL (6.4-8.2)
[2017-11-03 07:21] LABS: HEPATITIS C ANTIBODY C Non-Reactive (Non-Reactive)
[2017-11-03 08:00] VITALS: BP 137/71
[2017-11-03] MEDS: LINEZOLID (ZYVOX) 600 MG TAB PO SCH (08:43)
[2017-11-03] MEDS: IBUPROFEN 800 MG (MOTRIN) TAB PO PRN (08:44)
[2017-11-03 09:25] LABS: BASOPHILS # (AUTO) 0.2 10^3/uL (0.0-0.1); BASOPHILS % (AUTO) 1 % (0-10); EOSINOPHILS # (AUTO) 0.5 10^3/uL (0.0-0.3); EOSINOPHILS % (AUTO) 2 % (0-10); HEMATOCRIT 32 % (40-54); HEMOGLOBIN 11.3 G/DL (13.3-17.7); LYMPHOCYTES # (AUTO) 2.8 X 10^3 (1.0-4.0); LYMPHOCYTES % (AUTO) 10 % (12-44); MEAN CORPUSCULAR HEMOGLOBIN 29 PG (25-34); MEAN CORPUSCULAR HGB CONC 35 G/DL (32-36); MEAN CORPUSCULAR VOLUME 83 FL (80-99); MEAN PLATELET VOLUME 10.5 FL (7.4-10.4); MONOCYTES # (AUTO) 1.7 X 10^3 (0.0-1.0); MONOCYTES % (AUTO) 6 % (0-12); NEUTROPHILS # (AUTO) 24.2 X 10^3 (1.8-7.8); NEUTROPHILS % (AUTO) 82 % (42-75); PLATELET COUNT 340 10^3/uL (130-400); RED BLOOD COUNT 3.85 10^6/uL (4.35-5.85); RED CELL DISTRIBUTION WIDTH 14.3 % (10.0-14.5); WHITE BLOOD COUNT 29.4 10^3/uL (4.3-11.0)
[2017-11-03 09:29] LABS: ABSOLUTE RETIC # 45 10e9/L (24-90); RETICULOCYTE % 1.18 % (0.50-2.40)
[2017-11-03 10:11] LABS: ANISOCYTOSIS SLIGHT; BAND NEUTROPHILS 13 %; BASOPHILS % (MANUAL) 0 %; EOSINOPHILS % (MANUAL) 2 %; LYMPHOCYTES % (MANUAL) 13 %; METAMYELOCYTES % 1 %; MONOCYTES % (MANUAL) 2 %; MYELOCYTES % 2 %; NEUTROPHILS % (MANUAL) 67 %
--- NOTE | 2017-11-03 10:29 | Diagnostic Imaging Report ---
PA and lateral chest at 943 hours. INDICATION: Fever, sepsis. FINDINGS: There is shallow inspiration when compared to the prior exam of 10/28/2017. Allowing for this technical factor, the cardiothymic silhouette is stable and within normal limits. However, the lateral view does show that in the interval since the prior exam a small amount of atelectasis/infiltrate and fluid has developed in both lung bases. The upper lungs are generally clear. The mediastinum is not widened. The osseous structures are intact. IMPRESSION: 1. The appearance of the chest has worsened since the prior study as mild bibasilar atelectasis/pneumonia and small bilateral pleural effusions have developed. 2. These results were discussed with Dr. Migdalia Rivas. Dictated by: Dictated on workstation # [id number]
[2017-11-03 11:44] LABS: BILIRUBIN,URINE NEGATIVE (NEGATIVE); CLARITY,URINE CLEAR; COLOR,URINE YELLOW; GLUCOSE, URINE (UA) NEGATIVE (NEGATIVE); KETONES,URINE NEGATIVE (NEGATIVE); LEUKOCYTE ESTERASE ,URINE NEGATIVE (NEGATIVE); NITRITE,URINE NEGATIVE (NEGATIVE); PH,URINE 7 (5-9); PROTEIN,URINE NEGATIVE (NEGATIVE); UROBILINOGEN,URINE NORMAL (NORMAL)
[2017-11-03 11:55] LABS: BACTERIA,URINE NEGATIVE /HPF; RBC,URINE 0-2 /HPF; WBC,URINE RARE /HPF
--- NOTE | 2017-11-03 15:15 | Diagnostic Imaging Report ---
EXAMINATION: Liver ultrasound. INDICATION: Elevated liver function tests. There are no prior studies available for comparison. FINDINGS: The liver is prominent but not enlarged. There is no focal mass involving the liver and the biliary tree is not dilated. Spectral and color flow imaging of the portal and hepatic veins shows that the portal vein and hepatic veins are patent and that there is normal direction of flow within the veins. There is no evidence for cholelithiasis or acute cholecystitis and the common bile duct is not dilated. The right kidney is unremarkable. The pancreas is obscured by bowel gas as is the proximal aorta. During the course of the exam, a small right pleural effusion is identified. The chest exam performed earlier today did show mild bibasilar atelectasis/infiltrate and small bilateral pleural effusions. IMPRESSION: 1. The liver is prominent, but there is no acute abnormality of the liver identified. 2. No other acute abnormality of the right upper quadrant is noted. 3. There is a small right pleural effusion. Dictated by: Dictated on workstation # [id number]
--- NOTE | 2017-11-03 15:19 | Diagnostic Imaging Report ---
EXAM: Left upper extremity ultrasound. DATE: November 03, 2017. INDICATION: 32-year-old male, nonhealing cellulitis, sepsis. Swelling of the arm with redness and warmth. COMPARISON: None. FINDINGS: There is discrepancy in labeling of the images versus labeling of the exam. The exam and indication are labeled as the left upper extremity. Images are labeled of the right upper extremity. Recommend confirmation with the patient that the correct side was imaged. At the level of the axilla, there is a 1.5 x 1.1 x 1.9 cm heterogeneously echoic mass which most likely relates to an abnormally enlarged axillary lymph node. There is abnormal cortical thickening measuring up to 6 mm. There is subcutaneous edema in the upper arm. IMPRESSION: 1. Discrepancy in labeling of the images and exam. Recommend confirmation with the patient that the correct side was imaged. 2. Nonspecific subcutaneous edema at the level of the upper arm. 3. Abnormal-appearing axillary lymph node measuring 1.5 x 1.1 x 1.9 cm in size. Dictated by: Dictated on workstation # [id number]
--- NOTE | 2017-11-03 15:54 | Diagnostic Imaging Report ---
EXAM: Left upper extremity arterial Doppler. INDICATION: Nonhealing cellulitis Spectral and color-flow imaging of the arterial system of the left upper extremity was noted. There is generally good arterial blood flow to the right upper extremity. There is no significant alteration of the velocities to suggest a hemodynamically significant stenosis. However there are monophasic waveforms throughout the arterial system. The reason for the dampened waveform is not certain. If further evaluation is desired, CTA of the chest and great vessels would be recommended. IMPRESSION: There is no evidence for hemodynamically significant stenosis but the waveform throughout the arterial system is monophasic. Additional considerations, as above. Dictated by: Dictated on workstation # [id number]
[2017-11-03 16:00] VITALS: BP 126/75
[2017-11-03] MEDS ORDERED: LACTATED RINGERS 1,000 ML IV ONE (16:55)
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
[2017-11-03] MEDS: ENOXAPARIN 40 MG/0.4 ML (LOVENOX) SYR SC SCH (17:16)
--- NOTE | 2017-11-03 17:16 | Progress Note-Pre Operative ---
Pre-Operative Progress Note H&P Reviewed The H&P was reviewed, patient examined and no changes noted. Date Seen by Provider: Nov 03, 2017 Time Seen by Provider: 16:40 Date H&P Reviewed: Nov 03, 2017 Time H&P Reviewed: 17:15 Pre-Operative Diagnosis: abscess of left upper arm FELICITAS CH MD Nov 03, 2017 5:16 pm
[2017-11-03] MEDS ORDERED: TETANUS & DIPHTHERIA TOX,ADULT 0.5 ML (TENIVAC) IM ONE (17:30)
[2017-11-03] MEDS ORDERED: ONDANSETRON 4 MG/2 ML (SDV) Z0FRAN ONE (17:47)
[2017-11-03] MEDS ORDERED: SUCCINYLCHOLINE INJ 100 MG/5 ML SYR ONE ×2 (17:47→19:00)
[2017-11-03] MEDS ORDERED: SEVOFLURANE (ULTANE) 15 ML INHAL SOLN ONE ×4 (17:47→18:43)
[2017-11-03] MEDS ORDERED: FAMOTIDINE 20MG/2ML IV (PEPCID) ONE (17:47)
[2017-11-03] MEDS ORDERED: fentaNYL INJECTION 100 MCG/2 ML AMP ONE ×3 (17:47→18:42)
[2017-11-03] MEDS ORDERED: DEXAMETHASONE 10 MG/ML (DECADRON) 1 ML VIAL ONE (17:47)
[2017-11-03] MEDS ORDERED: LIDOCAINE PF 2% 5 ML (XYLOCAINE) VIAL ONE (17:47)
[2017-11-03] MEDS ORDERED: proPOfol 200 MG/20 ML (DIPRIVAN) VIAL IV ONE (17:47)
[2017-11-03] MEDS ORDERED: MIDAZOLAM 2 MG/2 ML (VERSED) VIAL ONE (17:47)
[2017-11-03] MEDS ORDERED: BUP/EPI 0.5% 1:200,000 (MARCAINE) 10ML VIAL IJ ONE (17:56)
[2017-11-03] MEDS ORDERED: LACTATED RINGERS 1,000 ML IV PRN (18:00)
[2017-11-03] MEDS ORDERED: KETOROLAC 30 MG/ML VIAL ONE (18:43)
--- NOTE | 2017-11-03 18:49 | Operative Report ---
Operative Report Date of Procedure/Surgery Nov 03, 2017 Surgeon (s) FELICITAS CH MD Materials Research Engineer (s): Kavon Maher (Med Student) Post-Operative Diagnosis Abscess left upper arm Procedure Performed Incision and drainage Description of Procedure Anesthesia Type: General Estimated blood loss (mL): 100 mL Specimen(s) collected/removed Pus for culture Description of the Procedure Indication for the procedure: This young man has been admitted with fever and severe cellulitis involving the left upper arm. Despite IV antibiotics, he continued to develop temperature spikes and had persistent leukocytosis. Local examination showed severe induration of the upper arm indicative of an underlying abscess. Therefore, he was offered formal incision and drainage under general anesthetic. Informed consent was obtained after reviewing the operative details and complications of postoperative bleeding, requirement for additional surgery and the potential for neurovascular dysfunction. Communication was made effective with the help of his family member, who is bilingual. Description of the procedure: He was placed supine on the operating table and general anesthesia induced using an endotracheal tube. Left upper extremity was prepared and draped in the usual sterile manner. Aspiration using an 18- gauge needle along the mid left upper arm confirmed pus. Therefore, a 10 cm longitudinal incision was made along the medial aspect of the arm and initially a subcutaneous abscess cavity encountered. It was evacuated thoroughly. Further exploration confirmed extension of the abscess into the intermuscular tissue spaces. These were opened up by blunt dissection, carefully protecting the neurovascular bundle. Hemostasis was achieved using cautery and the abscess cavities were thoroughly irrigated with warm saline. A total of 3 Orange drains were left, 2 of them in the deep pockets and the third one along the subcutaneous pocket. These were secured with silk sutures and a nonadherent dressing was then applied He tolerated the procedure well, was extubated in the operating room and taken to the recovery room in a stable condition. Findings of the Procedure See op report Allergies and Home Medications Allergies Coded Allergies: No Known Drug Allergies (Unverified , 10/28/17) Home Medications Unable to Obtain Active Prescriptions or Reported Meds FELICITAS CH MD Nov 03, 2017 6:49 pm
[2017-11-03] MEDS ORDERED: fentaNYL INJECTION 100 MCG/2 ML AMP IVP PRN ×2 (19:30→20:30)
[2017-11-03] MEDS ORDERED: morphine INJ 10 MG/ML 1ML (SYR OR VIAL) IVP PRN (19:30)
[2017-11-03] MEDS ORDERED: ONDANSETRON 4 MG/2 ML (SDV) Z0FRAN IVP PRN ×2 (19:30→20:30)
[2017-11-03] MEDS ORDERED: oxyCODONE/APAP 5/325MG (PERCOCET 5) TABLET ONE (20:44)
--- NOTE | 2017-11-03 20:53 | Progress Note (SOAP) ---
Subjective Subjective/Events-last exam Febrile to 101 this am. He continues to report feeling somewhat better, weakness is improved and he has no pain. Review of Systems Date Seen by Provider: Nov 03, 2017 Time Seen by Provider: 10:45 Objective Exam Last Set of Vital Signs Vital Signs Date Time Temp Pulse Resp B/P (MAP) Pulse Ox O2 Delivery O2 Flow Rate FiO2 11/03/17 16:00 77 18 126/75 (92) 99 Room Air 11/03/17 12:11 98.2 Capillary Refill : Less Than 3 Seconds I&O Intake and Output 11/03/17 00:00 Intake Total 2580 ml Balance 2580 ml Intake Oral 1480 ml IV Total 1100 ml # Voids 9 # Bowel Movements 1 General: Alert, No Acute Distress Extremities: Other (marked edema of undersurface of left arm into dorsum of left hand with persistent significant though decreased edema) Psych/Mental Status: Mental Status NL Results/Procedures Lab Laboratory Tests 11/03/17 05:30: White Blood Count 29.4H, Red Blood Count 3.85L, Hemoglobin 11.3L, Hematocrit 32L , Mean Corpuscular Volume 83, Mean Corpuscular Hemoglobin 29, Mean Corpuscular Hemoglobin Concent 35, Red Cell Distribution Width 14.3, Platelet Count 340, Mean Platelet Volume 10.5H, Neutrophils (%) (Auto) 82H, Lymphocytes (%) (Auto) 10L, Monocytes (%) (Auto) 6, Eosinophils (%) (Auto) 2, Basophils (%) (Auto) 1, Neutrophils # (Auto) 24.2H, Lymphocytes # (Auto) 2.8, Monocytes # (Auto) 1.7H, Eosinophils # (Auto) 0.5H, Basophils # (Auto) 0.2H, Neutrophils % (Manual) 67, Lymphocytes % (Manual) 13, Monocytes % (Manual) 2, Eosinophils % (Manual) 2, Basophils % (Manual) 0, Metamyelocytes % 1, Myelocytes % 2, Band Neutrophils 13 , Anisocytosis SLIGHT, Absolute Reticulocyte Count 45, Percent Reticulocyte Count 1.18, Sodium Level 137, Potassium Level 3.8, Chloride Level 103, Carbon Dioxide Level 24, Anion Gap 10, Blood Urea Nitrogen 5L, Creatinine 0.58L, Estimat Glomerular Filtration Rate > 60, BUN/Creatinine Ratio 9, Glucose Level 89, Calcium Level 7.8L, Magnesium Level 1.7L, Total Bilirubin 0.4, Aspartate Amino Transf (AST/SGOT) 209H, Alanine Aminotransferase (ALT/SGPT) 147H, Alkaline Phosphatase 184H, C-Reactive Protein High Sensitivity 8.42H, Total Protein 4.4L, Albumin 2.3L 11/03/17 11:25: Urine Color YELLOW, Urine Clarity CLEAR, Urine pH 7, Urine Specific [place] 1.010L, Urine Protein NEGATIVE, Urine Glucose (UA) NEGATIVE, Urine Ketones NEGATIVE, Urine Nitrite NEGATIVE, Urine Bilirubin NEGATIVE, Urine Urobilinogen NORMAL, Urine Leukocyte Esterase NEGATIVE, Urine RBC (Auto) NEGATIVE, Urine RBC 0-2, Urine WBC RARE, Urine Crystals NONE, Urine Bacteria NEGATIVE, Urine Casts NONE, Urine Mucus NEGATIVE, Urine Culture Indicated NO Microbiology 10/28/17 Blood Culture - Final, Complete No growth Assessment/Plan Assessment/Plan Plan Sepsis secondary to cellulitis: 10/29: -started on Vanc and Zosyn in ED -significantly elevated WBC count as well as left shift -no evidence of clot or abscess noted on imaging studies -initially elevated lactate, which responded to fluid bolus and is now WNL -culture results pending, will narrow abx therapy when results returned -Left arm edema, will wrap with compression to see if that helps; pt reports that his left upper arm is always slightly swollen since his surgery, but currently his swelling extends into his forearm as well 10/30: -blood cx show no growth to date, white count elevated from yesterday, CRP remains >15, febrile to Tmax 103 yesterday afternoon, will continue Zosyn and Vanc, recheck labs in AM 10/31: blood cx continue to show no growth to date, white count remains elevated at 29, but stable from yesterday, CRP remains >15, febrile overnight with Tmax 101.7; US done to rule out abscess --> no evidence of abscess. Given that fevers seem to be somewhat improved from previous and Vanc dosing was adjusted after subtherapeutic level, will continue with current broad spectrum abx, recheck labs in AM. 11/01: recurrent fever up to 103 persists as well as leukocytosis of 30 this morning. Will change antibiotics to meropenem and linezolid. No abscess noted on ultrasound and no evidence of joint involvement per symptoms. 11/02: afebrile last 24 hours, WBC slightly decreased and CRP decreased, continue meropenem and linezolid, d/c acetaminophen to watch for recurrent fevers 11/03 febrile to 101 and with WBC persistently elevated near 30, discussed with ID income tax consultant at [facility] who had no further recommendations if no surgical intervention indicated. Will repeat US and consult Dr. Sequeira to evaluate for any surgical intervention. Check arterial US to rule out mycotic anuerysm. Repeat blood culture, UA and CXR given recurrent fever after 24 hours fever free. Check HIV antibodies. Hypokalemia 10/30: replace with 40 mEq PO, recheck BMP in AM 10/31: remains low, replaced again today and recheck in AM 11/01: remains low, replace IV and PO and replace magnesium 11/02: persistent, replace aggressively and recheck this evening 11/03 resolved monitor Hypocalcemia 10/30: recheck BMP in AM Hypoalbuminemia Hypomagnesemia- follow and replace as needed Elevated liver enzymes- worsened today, hepatitis panel negative, will check liver ultrasound DVT Ppx: Lovenox, SCDs, Ambulation FEN: Regular Diet Clinical Quality Measures DVT/VTE Risk/Contraindication: Risk Factor Score Per Nursin RFS Level Per Nursing on Admit: 4+=Very High JOSEY MATHIS MD Nov 03, 2017 8:53 pm
[2017-11-03] MEDS: HYDROcodone/APAP 5 MG/325 MG (LORTAB) TAB PO PRN (21:06)
[2017-11-03] MEDS: LACTOBACILLUS Acidoph/Bulgar (LACTINEX/FLORANEX) TAB PO SCH (21:07)
[2017-11-03] MEDS: POTASSIUM CHLORIDE INJ 20 MEQ in D5 LR IV SOLUTION 1,000 ML IV SCH (21:07)
[2017-11-03] MEDS: CLINDAMYCIN INJECTION 900 MG in NS (IVPB) 50 ML IV SCH (21:12)
[2017-11-04] MEDS: MEROPENEM 500 MG/NS 100 ML IVPB IV SCH ×8 (00:18→18:01)
[2017-11-04 00:25] VITALS: BP 128/84
[2017-11-04 03:47] VITALS: BP 109/71
[2017-11-04] MEDS: CLINDAMYCIN INJECTION 900 MG in NS (IVPB) 50 ML IV SCH ×3 (05:05→21:12)
[2017-11-04 07:05] LABS: BASOPHILS # (AUTO) 0.1 10^3/uL (0.0-0.1); BASOPHILS % (AUTO) 0 % (0-10); EOSINOPHILS % (AUTO) 0 % (0-10); HEMATOCRIT 33 % (40-54); HEMOGLOBIN 12.3 G/DL (13.3-17.7); LYMPHOCYTES # (AUTO) 1.5 X 10^3 (1.0-4.0); LYMPHOCYTES % (AUTO) 5 % (12-44); MEAN CORPUSCULAR HEMOGLOBIN 29 PG (25-34); MEAN CORPUSCULAR HGB CONC 38 G/DL (32-36); MEAN CORPUSCULAR VOLUME 77 FL (80-99); MEAN PLATELET VOLUME 9.7 FL (7.4-10.4); MONOCYTES # (AUTO) 0.6 X 10^3 (0.0-1.0); MONOCYTES % (AUTO) 2 % (0-12); NEUTROPHILS # (AUTO) 26.3 X 10^3 (1.8-7.8); NEUTROPHILS % (AUTO) 92 % (42-75); PLATELET COUNT 402 10^3/uL (130-400); RED CELL DISTRIBUTION WIDTH 13.6 % (10.0-14.5); WHITE BLOOD COUNT 28.5 10^3/uL (4.3-11.0)
[2017-11-04 07:23] LABS: ALANINE AMINOTRANSFERASE 226 U/L (0-55); ALBUMIN 2.7 GM/DL (3.2-4.5); ALKALINE PHOSPHATASE 179 U/L (40-136); BILIRUBIN,TOTAL 0.4 MG/DL (0.1-1.0); BUN/CREATININE RATIO 16; CALCIUM 8.3 MG/DL (8.5-10.1); CARBON DIOXIDE 24 MMOL/L (21-32); CHLORIDE 101 MMOL/L (98-107); CREATININE SERUM 0.57 MG/DL (0.60-1.30); GFR ESTIMATED > 60; GLUCOSE 163 MG/DL (70-105); MAGNESIUM 1.6 MG/DL (1.8-2.4); POTASSIUM 4.1 MMOL/L (3.6-5.0); SODIUM 135 MMOL/L (135-145); TOTAL PROTEIN 6.2 GM/DL (6.4-8.2)
[2017-11-04 08:00] VITALS: BP 117/73
[2017-11-04] MEDS: MAGNESIUM 1 GM/100 ML IVPB 100 ML IV SCH ×3 (08:40→11:35)
[2017-11-04] MEDS: LACTOBACILLUS Acidoph/Bulgar (LACTINEX/FLORANEX) TAB PO SCH ×2 (08:40→20:15)
[2017-11-04] MEDS ORDERED: MAGNESIUM 1 GM/100 ML IVPB 100 ML IV SCH ×2 (09:00→11:00)
--- NOTE | 2017-11-04 10:20 | Progress Note-Standard ---
Standard Progress Note Progress Notes/Assess & Plan Date Seen by Provider: Nov 04, 2017 Time Seen by Provider: 09:55 Progress/Assessment & Plan uneventful night. Afebrile. Leukocytosis persists. Wound examined and appears to be consistent with postoperative changes. No necrosis of additional tissue or skin. Left axillary lymph node nontender and much softer. Edema over the dorsum of the hand resolved. Gram-positive cocci on Gram stain. We' ll continue antibiotics. Final Diagnosis abscess of left upper arm FELICITAS CH MD Nov 04, 2017 10:20 am
--- NOTE | 2017-11-04 10:40 | Anesthesia-General Post-Op ---
General Patient Condition Mental Status/LOC: Same as Preop Cardiovascular: Satisfactory Nausea/Vomiting: Absent Respiratory: Satisfactory Pain: Controlled Complications: Absent Post Op Complications Complications None Follow Up Care/Instructions Patient Instructions None needed. Anesthesia/Patient Condition Patient Condition Patient is doing well, no complaints, stable vital signs, no apparent adverse anesthesia problems. No complications reported per nursing. KATHIA YOUNG CRNA Nov 04, 2017 10:40
--- NOTE | 2017-11-04 11:03 | Progress Note (SOAP) ---
Subjective Subjective/Events-last exam Tmax yesterday am at 0844 of 101, no fever since then. Underwent I&D per Dr. Sequeira last night with fair amount of pus drained and [address] He denies pain or other concerns this morning. Review of Systems Date Seen by Provider: Nov 04, 2017 Time Seen by Provider: 10:00 Objective Exam Last Set of Vital Signs Vital Signs Date Time Temp Pulse Resp B/P (MAP) Pulse Ox O2 Delivery O2 Flow Rate FiO2 11/04/17 08:00 98.5 74 20 117/73 (88) 97 Room Air Capillary Refill : Less Than 3 Seconds I&O Intake and Output 11/04/17 00:00 Intake Total 1500 ml Output Total 150 ml Balance 1350 ml Intake Oral 1400 ml IV Total 100 ml Output Urine Total 150 ml # Voids 5 General: Alert, No Acute Distress Extremities: Other (left arm undressed by Dr. Sequeira- swelling appears significantly improved and erythema markedly decreased) Neuro: Normal Speech Psych/Mental Status: Mental Status NL Results/Procedures Lab Laboratory Tests 11/03/17 11:25: Urine Color YELLOW, Urine Clarity CLEAR, Urine pH 7, Urine Specific [place] 1.010L, Urine Protein NEGATIVE, Urine Glucose (UA) NEGATIVE, Urine Ketones NEGATIVE, Urine Nitrite NEGATIVE, Urine Bilirubin NEGATIVE, Urine Urobilinogen NORMAL, Urine Leukocyte Esterase NEGATIVE, Urine RBC (Auto) NEGATIVE, Urine RBC 0-2, Urine WBC RARE, Urine Crystals NONE, Urine Bacteria NEGATIVE, Urine Casts NONE, Urine Mucus NEGATIVE, Urine Culture Indicated NO 11/04/17 06:21: White Blood Count 28.5H, Red Blood Count 4.20L, Hemoglobin 12.3L, Hematocrit 33L , Mean Corpuscular Volume 77L, Mean Corpuscular Hemoglobin 29, Mean Corpuscular Hemoglobin Concent 38H, Red Cell Distribution Width 13.6, Platelet Count 402H, Mean Platelet Volume 9.7, Neutrophils (%) (Auto) 92H, Lymphocytes (%) (Auto) 5L , Monocytes (%) (Auto) 2, Eosinophils (%) (Auto) 0, Basophils (%) (Auto) 0, Neutrophils # (Auto) 26.3H, Lymphocytes # (Auto) 1.5, Monocytes # (Auto) 0.6, Eosinophils # (Auto) 0.0, Basophils # (Auto) 0.1, Sodium Level 135, Potassium Level 4.1, Chloride Level 101, Carbon Dioxide Level 24, Anion Gap 10, Blood Urea Nitrogen 9, Creatinine 0.57L, Estimat Glomerular Filtration Rate > 60, BUN/ Creatinine Ratio 16, Glucose Level 163H, Calcium Level 8.3L, Magnesium Level 1.6L, Total Bilirubin 0.4, Aspartate Amino Transf (AST/SGOT) 230H, Alanine Aminotransferase (ALT/SGPT) 226H, Alkaline Phosphatase 179H, Total Protein 6.2L , Albumin 2.7L Microbiology 10/28/17 Blood Culture - Final, Complete No growth 11/03/17 Gram Stain - Final, Resulted 11/03/17 Anaerobic Culture, Resulted Pending 11/03/17 Surgical Culture, Resulted Pending Assessment/Plan Assessment/Plan Plan Sepsis secondary to cellulitis: 10/29: -started on Vanc and Zosyn in ED -significantly elevated WBC count as well as left shift -no evidence of clot or abscess noted on imaging studies -initially elevated lactate, which responded to fluid bolus and is now WNL -culture results pending, will narrow abx therapy when results returned -Left arm edema, will wrap with compression to see if that helps; pt reports that his left upper arm is always slightly swollen since his surgery, but currently his swelling extends into his forearm as well 10/30: -blood cx show no growth to date, white count elevated from yesterday, CRP remains >15, febrile to Tmax 103 yesterday afternoon, will continue Zosyn and Vanc, recheck labs in AM 10/31: blood cx continue to show no growth to date, white count remains elevated at 29, but stable from yesterday, CRP remains >15, febrile overnight with Tmax 101.7; US done to rule out abscess --> no evidence of abscess. Given that fevers seem to be somewhat improved from previous and Vanc dosing was adjusted after subtherapeutic level, will continue with current broad spectrum abx, recheck labs in AM. 11/01: recurrent fever up to 103 persists as well as leukocytosis of 30 this morning. Will change antibiotics to meropenem and linezolid. No abscess noted on ultrasound and no evidence of joint involvement per symptoms. 11/02: afebrile last 24 hours, WBC slightly decreased and CRP decreased, continue meropenem and linezolid, d/c acetaminophen to watch for recurrent fevers 11/03 febrile to 101 and with WBC persistently elevated near 30, discussed with ID radiation protection specialist at [facility] who had no further recommendations if no surgical intervention indicated. Will repeat US and consult Dr. Sequeira to evaluate for any surgical intervention. Check arterial US to rule out mycotic anuerysm. Repeat blood culture, UA and CXR given recurrent fever after 24 hours fever free. Check HIV antibodies. 11/04 underwent I&D last night per Dr. Sequeira with fair amount of pus evacuated in spite of no clear abscess on ultrasound. Linezolid discontinued, wound culture with gram positive cocci so far. Dr. Sequeira added clindamycin for possible clostridium. Hypokalemia 10/30: replace with 40 mEq PO, recheck BMP in AM 10/31: remains low, replaced again today and recheck in AM 11/01: remains low, replace IV and PO and replace magnesium 11/02: persistent, replace aggressively and recheck this evening 11/03 resolved monitor Hypocalcemia 10/30: recheck BMP in AM Hypoalbuminemia Hypomagnesemia- follow and replace as needed Elevated liver enzymes- worsened today, hepatitis panel negative, will check liver ultrasound 11/04 liver ultrasound unremarkable, LFTs still elevating for unclear etiology, continue to monitor although alk phos slightly decreased today DVT Ppx: Lovenox, SCDs, Ambulation FEN: Regular Diet Clinical Quality Measures DVT/VTE Risk/Contraindication: Risk Factor Score Per Nursin RFS Level Per Nursing on Admit: 4+=Very High JOSEY MATHIS MD Nov 04, 2017 11:03 am
[2017-11-04 12:00] VITALS: BP 106/56
[2017-11-04] MEDS: POTASSIUM CHLORIDE INJ 20 MEQ in D5 LR IV SOLUTION 1,000 ML IV SCH ×2 (12:41→14:51)
[2017-11-04 16:00] VITALS: BP 119/72
[2017-11-04 19:57] VITALS: BP 119/73
[2017-11-05] VITALS: BP 122/63
[2017-11-05] MEDS: MEROPENEM 500 MG/NS 100 ML IVPB IV SCH ×10 (00:49→23:12)
[2017-11-05] MEDS: POTASSIUM CHLORIDE INJ 20 MEQ in D5 LR IV SOLUTION 1,000 ML IV SCH (01:24)
[2017-11-05] MEDS: CLINDAMYCIN INJECTION 900 MG in NS (IVPB) 50 ML IV SCH ×3 (05:09→21:13)
[2017-11-05 06:32] LABS: BASOPHILS # (AUTO) 0.1 10^3/uL (0.0-0.1); BASOPHILS % (AUTO) 1 % (0-10); EOSINOPHILS # (AUTO) 0.2 10^3/uL (0.0-0.3); EOSINOPHILS % (AUTO) 1 % (0-10); HEMATOCRIT 32 % (40-54); HEMOGLOBIN 11.5 G/DL (13.3-17.7); LYMPHOCYTES # (AUTO) 3.6 X 10^3 (1.0-4.0); LYMPHOCYTES % (AUTO) 19 % (12-44); MEAN CORPUSCULAR HEMOGLOBIN 29 PG (25-34); MEAN CORPUSCULAR HGB CONC 36 G/DL (32-36); MEAN CORPUSCULAR VOLUME 80 FL (80-99); MEAN PLATELET VOLUME 9.2 FL (7.4-10.4); MONOCYTES # (AUTO) 1.3 X 10^3 (0.0-1.0); MONOCYTES % (AUTO) 7 % (0-12); NEUTROPHILS # (AUTO) 13.7 X 10^3 (1.8-7.8); NEUTROPHILS % (AUTO) 72 % (42-75); PLATELET COUNT 464 10^3/uL (130-400); RED BLOOD COUNT 3.93 10^6/uL (4.35-5.85); RED CELL DISTRIBUTION WIDTH 13.7 % (10.0-14.5)
[2017-11-05 06:59] LABS: ANISOCYTOSIS SLIGHT; BAND NEUTROPHILS 1 %; BASOPHILS % (MANUAL) 0 %; EOSINOPHILS % (MANUAL) 0 %; LYMPHOCYTES % (MANUAL) 23 %; METAMYELOCYTES % 2 %; MONOCYTES % (MANUAL) 8 %; NEUTROPHILS % (MANUAL) 65 %; POLYCHROMASIA SLIGHT; REACTIVE LYMPHOCYTES 1 %
[2017-11-05 07:13] LABS: ALANINE AMINOTRANSFERASE 202 U/L (0-55); ALBUMIN 2.4 GM/DL (3.2-4.5); ALKALINE PHOSPHATASE 149 U/L (40-136); BILIRUBIN,TOTAL 0.4 MG/DL (0.1-1.0); BUN/CREATININE RATIO 19; CALCIUM 7.9 MG/DL (8.5-10.1); CARBON DIOXIDE 27 MMOL/L (21-32); CHLORIDE 103 MMOL/L (98-107); CREATININE SERUM 0.58 MG/DL (0.60-1.30); GFR ESTIMATED > 60; GLUCOSE 89 MG/DL (70-105); MAGNESIUM 1.7 MG/DL (1.8-2.4); POTASSIUM 4.3 MMOL/L (3.6-5.0); SODIUM 139 MMOL/L (135-145); TOTAL PROTEIN 5.6 GM/DL (6.4-8.2)
[2017-11-05] MEDS: LACTOBACILLUS Acidoph/Bulgar (LACTINEX/FLORANEX) TAB PO SCH ×2 (07:45→20:15)
[2017-11-05] MEDS: HYDROcodone/APAP 5 MG/325 MG (LORTAB) TAB PO PRN (07:46)
[2017-11-05 08:00] VITALS: BP 124/71
[2017-11-05] MEDS: MAGNESIUM 1 GM/100 ML IVPB 100 ML IV SCH ×2 (11:57→13:21)
--- NOTE | 2017-11-05 14:19 | Progress Note (SOAP) ---
Subjective Subjective/Events-last exam Afebrile. Reports no pain. He is wondering if he can walk around and what he should eat to help with wound healing. Review of Systems Date Seen by Provider: Nov 05, 2017 Time Seen by Provider: 11:00 Objective Exam Last Set of Vital Signs Vital Signs Date Time Temp Pulse Resp B/P (MAP) Pulse Ox O2 Delivery O2 Flow Rate FiO2 11/05/17 08:00 98.4 79 20 124/71 (88) 97 Room Air Capillary Refill : Less Than 3 Seconds I&O Intake and Output 11/05/17 00:00 Intake Total 2912 ml Balance 2912 ml Intake Oral 1500 ml IV Total 1412 ml # Voids 8 # Bowel Movements 1 General: Alert, No Acute Distress Extremities: Other (left arm with dressing in place around entire upper arm with moderate serosanguinous drainage on bandage. Axilla non-tender and without fluctuance. No edema in hand.) Neuro: Normal Speech Psych/Mental Status: Mental Status NL Results/Procedures Lab Laboratory Tests 11/05/17 06:20: White Blood Count 19.0H, Red Blood Count 3.93L, Hemoglobin 11.5L, Hematocrit 32L , Mean Corpuscular Volume 80, Mean Corpuscular Hemoglobin 29, Mean Corpuscular Hemoglobin Concent 36, Red Cell Distribution Width 13.7, Platelet Count 464H, Mean Platelet Volume 9.2, Neutrophils (%) (Auto) 72, Lymphocytes (%) (Auto) 19, Monocytes (%) (Auto) 7, Eosinophils (%) (Auto) 1, Basophils (%) (Auto) 1, Neutrophils # (Auto) 13.7H, Lymphocytes # (Auto) 3.6, Monocytes # (Auto) 1.3H, Eosinophils # (Auto) 0.2, Basophils # (Auto) 0.1, Neutrophils % (Manual) 65, Lymphocytes % (Manual) 23, Monocytes % (Manual) 8, Eosinophils % (Manual) 0, Basophils % (Manual) 0, Metamyelocytes % 2, Band Neutrophils 1, Reactive Lymphocytes 1, Polychromasia SLIGHT, Anisocytosis SLIGHT, Macrocytosis SLIGHT, Sodium Level 139, Potassium Level 4.3, Chloride Level 103, Carbon Dioxide Level 27, Anion Gap 9, Blood Urea Nitrogen 11, Creatinine 0.58L, Estimat Glomerular Filtration Rate > 60, BUN/Creatinine Ratio 19, Glucose Level 89, Calcium Level 7.9L, Magnesium Level 1.7L, Total Bilirubin 0.4, Aspartate Amino Transf (AST/ SGOT) 143H, Alanine Aminotransferase (ALT/SGPT) 202H, Alkaline Phosphatase 149H , C-Reactive Protein High Sensitivity 2.23H, Total Protein 5.6L, Albumin 2.4L Microbiology 11/03/17 Blood Culture - Preliminary, Resulted No growth 11/03/17 MRSA Screen - Final, Complete MRSA not isolated 11/03/17 Gram Stain - Final, Resulted 11/03/17 Anaerobic Culture - Preliminary, Resulted No anaerobes isolated 11/03/17 Surgical Culture - Preliminary, Resulted Strep, Beta Hemolytic Group A Assessment/Plan Assessment/Plan Plan Sepsis secondary to cellulitis: 10/29: -started on Vanc and Zosyn in ED -significantly elevated WBC count as well as left shift -no evidence of clot or abscess noted on imaging studies -initially elevated lactate, which responded to fluid bolus and is now WNL -culture results pending, will narrow abx therapy when results returned -Left arm edema, will wrap with compression to see if that helps; pt reports that his left upper arm is always slightly swollen since his surgery, but currently his swelling extends into his forearm as well 10/30: -blood cx show no growth to date, white count elevated from yesterday, CRP remains >15, febrile to Tmax 103 yesterday afternoon, will continue Zosyn and Vanc, recheck labs in AM 10/31: blood cx continue to show no growth to date, white count remains elevated at 29, but stable from yesterday, CRP remains >15, febrile overnight with Tmax 101.7; US done to rule out abscess --> no evidence of abscess. Given that fevers seem to be somewhat improved from previous and Vanc dosing was adjusted after subtherapeutic level, will continue with current broad spectrum abx, recheck labs in AM. 11/01: recurrent fever up to 103 persists as well as leukocytosis of 30 this morning. Will change antibiotics to meropenem and linezolid. No abscess noted on ultrasound and no evidence of joint involvement per symptoms. 11/02: afebrile last 24 hours, WBC slightly decreased and CRP decreased, continue meropenem and linezolid, d/c acetaminophen to watch for recurrent fevers 11/03 febrile to 101 and with WBC persistently elevated near 30, discussed with ID release of information specialist at [facility] who had no further recommendations if no surgical intervention indicated. Will repeat US and consult Dr. Sequeira to evaluate for any surgical intervention. Check arterial US to rule out mycotic anuerysm. Repeat blood culture, UA and CXR given recurrent fever after 24 hours fever free. Check HIV antibodies. 11/04 underwent I&D last night per Dr. Sequeira with fair amount of pus evacuated in spite of no clear abscess on ultrasound. Linezolid discontinued, wound culture with gram positive cocci so far. Dr. Sequeira added clindamycin for possible clostridium. 11/05- remains afebrile and with significant decrease in WBC and CRP today, continue meropenem and clindamycin, anticipate narrowing tomorrow. GAS from wound culture. Hypokalemia 10/30: replace with 40 mEq PO, recheck BMP in AM 10/31: remains low, replaced again today and recheck in AM 11/01: remains low, replace IV and PO and replace magnesium 11/02: persistent, replace aggressively and recheck this evening 11/03 resolved monitor Hypoalbuminemia- encouraged increased intake of lean protein Hypomagnesemia- follow and replace as needed Elevated liver enzymes- worsened today, hepatitis panel negative, will check liver ultrasound 11/04 liver ultrasound unremarkable, LFTs still elevating for unclear etiology, continue to monitor although alk phos slightly decreased today 11/05 improving DVT Ppx: Lovenox, SCDs, Ambulation FEN: Regular Diet Clinical Quality Measures DVT/VTE Risk/Contraindication: Risk Factor Score Per Nursin RFS Level Per Nursing on Admit: 4+=Very High JOSEY MATHIS MD Nov 05, 2017 2:19 pm
--- NOTE | 2017-11-05 14:30 | Progress Note ---
Subjective Time Seen by Provider: 14:23 Subjective/Events-last exam Pt seen and examined, denies pain. Feeling better Review of Systems Pulmonary: No Dyspnea, No Cough Cardiovascular: No: Chest Pain, Palpitations Objective Exam Vital Signs Date Time Temp Pulse Resp B/P (MAP) Pulse Ox O2 Delivery O2 Flow Rate FiO2 11/05/17 08:00 98.4 79 20 124/71 (88) 97 Room Air 11/05/17 04:15 99.0 11/05/17 00:00 97.7 72 18 122/63 (82) 95 Room Air 11/04/17 19:57 99.6 78 20 119/73 (88) 96 Room Air 11/04/17 16:00 98.6 88 20 119/72 (88) 99 Room Air I & O 11/05/17 07:00 Intake Total 3868 ml Balance 3868 ml Capillary Refill : Less Than 3 Seconds General Appearance: No Apparent Distress, WD/WN Respiratory: Lungs Clear, Normal Breath Sounds Cardiovascular: Regular Rate, Rhythm, No Murmur Peripheral Pulses: 2+ Radial Pulses (R), 2+ Radial Pulses (L) Gastrointestinal: non tender, soft Extremity: Other (open wound, no signs of necrosis, good granulation tissue) Results Lab Laboratory Tests 11/05/17 06:20: White Blood Count 19.0H, Red Blood Count 3.93L, Hemoglobin 11.5L, Hematocrit 32L , Mean Corpuscular Volume 80, Mean Corpuscular Hemoglobin 29, Mean Corpuscular Hemoglobin Concent 36, Red Cell Distribution Width 13.7, Platelet Count 464H, Mean Platelet Volume 9.2, Neutrophils (%) (Auto) 72, Lymphocytes (%) (Auto) 19, Monocytes (%) (Auto) 7, Eosinophils (%) (Auto) 1, Basophils (%) (Auto) 1, Neutrophils # (Auto) 13.7H, Lymphocytes # (Auto) 3.6, Monocytes # (Auto) 1.3H, Eosinophils # (Auto) 0.2, Basophils # (Auto) 0.1, Neutrophils % (Manual) 65, Lymphocytes % (Manual) 23, Monocytes % (Manual) 8, Eosinophils % (Manual) 0, Basophils % (Manual) 0, Metamyelocytes % 2, Band Neutrophils 1, Reactive Lymphocytes 1, Polychromasia SLIGHT, Anisocytosis SLIGHT, Macrocytosis SLIGHT, Sodium Level 139, Potassium Level 4.3, Chloride Level 103, Carbon Dioxide Level 27, Anion Gap 9, Blood Urea Nitrogen 11, Creatinine 0.58L, Estimat Glomerular Filtration Rate > 60, BUN/Creatinine Ratio 19, Glucose Level 89, Calcium Level 7.9L, Magnesium Level 1.7L, Total Bilirubin 0.4, Aspartate Amino Transf (AST/ SGOT) 143H, Alanine Aminotransferase (ALT/SGPT) 202H, Alkaline Phosphatase 149H , C-Reactive Protein High Sensitivity 2.23H, Total Protein 5.6L, Albumin 2.4L Microbiology 11/03/17 Blood Culture - Preliminary, Resulted No growth 11/03/17 MRSA Screen - Final, Complete MRSA not isolated 11/03/17 Gram Stain - Final, Resulted 11/03/17 Anaerobic Culture - Preliminary, Resulted No anaerobes isolated 11/03/17 Surgical Culture - Preliminary, Resulted Strep, Beta Hemolytic Group A Assessment/Plan Assessment/Plan Assessment/Plan 1. Cellulitis LUE s/p debridement Plan to continue ABX, dressing changes and pain control. WBC finally trending down. Clinical Quality Measures DVT/VTE Risk/Contraindication: Risk Factor Score Per Nursin RFS Level Per Nursing on Admit: 4+=Very High DACIA GALLEGOS DO Nov 05, 2017 14:30
[2017-11-05 16:00] VITALS: BP 115/72
[2017-11-06] VITALS: BP 110/64
[2017-11-06] MEDS: CLINDAMYCIN INJECTION 900 MG in NS (IVPB) 50 ML IV SCH ×3 (05:00→21:05)
[2017-11-06] MEDS: MEROPENEM 500 MG/NS 100 ML IVPB IV SCH ×8 (05:39→23:14)
[2017-11-06 06:18] LABS: BASOPHILS # (AUTO) 0.1 10^3/uL (0.0-0.1); BASOPHILS % (AUTO) 1 % (0-10); EOSINOPHILS # (AUTO) 0.4 10^3/uL (0.0-0.3); EOSINOPHILS % (AUTO) 3 % (0-10); HEMATOCRIT 37 % (40-54); HEMOGLOBIN 12.4 G/DL (13.3-17.7); LYMPHOCYTES # (AUTO) 2.4 X 10^3 (1.0-4.0); LYMPHOCYTES % (AUTO) 16 % (12-44); MEAN CORPUSCULAR HEMOGLOBIN 29 PG (25-34); MEAN CORPUSCULAR HGB CONC 34 G/DL (32-36); MEAN CORPUSCULAR VOLUME 85 FL (80-99); MEAN PLATELET VOLUME 9.6 FL (7.4-10.4); MONOCYTES # (AUTO) 1.2 X 10^3 (0.0-1.0); MONOCYTES % (AUTO) 8 % (0-12); NEUTROPHILS # (AUTO) 10.7 X 10^3 (1.8-7.8); NEUTROPHILS % (AUTO) 72 % (42-75); PLATELET COUNT 555 10^3/uL (130-400); RED BLOOD COUNT 4.32 10^6/uL (4.35-5.85); RED CELL DISTRIBUTION WIDTH 14.5 % (10.0-14.5); WHITE BLOOD COUNT 14.9 10^3/uL (4.3-11.0)
[2017-11-06 06:50] LABS: ALANINE AMINOTRANSFERASE 161 U/L (0-55); ALBUMIN 2.9 GM/DL (3.2-4.5); ALKALINE PHOSPHATASE 141 U/L (40-136); BILIRUBIN,TOTAL 0.4 MG/DL (0.1-1.0); BUN/CREATININE RATIO 17; CALCIUM 8.6 MG/DL (8.5-10.1); CARBON DIOXIDE 24 MMOL/L (21-32); CHLORIDE 102 MMOL/L (98-107); GFR ESTIMATED > 60; GLUCOSE 85 MG/DL (70-105); POTASSIUM 4.4 MMOL/L (3.6-5.0); SODIUM 136 MMOL/L (135-145); TOTAL PROTEIN 6.5 GM/DL (6.4-8.2)
[2017-11-06 08:00] VITALS: BP 107/61
[2017-11-06] MEDS: LACTOBACILLUS Acidoph/Bulgar (LACTINEX/FLORANEX) TAB PO SCH ×2 (09:29→19:32)
--- NOTE | 2017-11-06 09:39 | Progress Note (SOAP) ---
Subjective Subjective/Events-last exam Afebrile, denies concerns. Review of Systems Date Seen by Provider: Nov 06, 2017 Time Seen by Provider: 06:10 Objective Exam Last Set of Vital Signs Vital Signs Date Time Temp Pulse Resp B/P (MAP) Pulse Ox O2 Delivery O2 Flow Rate FiO2 11/06/17 08:00 98.7 68 20 107/61 (76) 96 Room Air Capillary Refill : Less Than 3 Seconds I&O Intake and Output 11/06/17 00:00 Intake Total 5188 ml Output Total 4 ml Balance 5184 ml Intake Oral 1420 ml IV Total 3768 ml Output Urine Total 4 ml # Voids 4 General: Alert, No Acute Distress Lungs: Clear to Auscultation, Normal Air Movement Heart: Regular Rate, No Murmurs Extremities: No Edema Psych/Mental Status: Mental Status NL Results/Procedures Lab Laboratory Tests 11/06/17 06:00: White Blood Count 14.9H, Red Blood Count 4.32L, Hemoglobin 12.4L, Hematocrit 37L , Mean Corpuscular Volume 85, Mean Corpuscular Hemoglobin 29, Mean Corpuscular Hemoglobin Concent 34, Red Cell Distribution Width 14.5, Platelet Count 555H, Mean Platelet Volume 9.6, Neutrophils (%) (Auto) 72, Lymphocytes (%) (Auto) 16, Monocytes (%) (Auto) 8, Eosinophils (%) (Auto) 3, Basophils (%) (Auto) 1, Neutrophils # (Auto) 10.7H, Lymphocytes # (Auto) 2.4, Monocytes # (Auto) 1.2H, Eosinophils # (Auto) 0.4H, Basophils # (Auto) 0.1, Sodium Level 136, Potassium Level 4.4, Chloride Level 102, Carbon Dioxide Level 24, Anion Gap 10, Blood Urea Nitrogen 10, Creatinine 0.60, Estimat Glomerular Filtration Rate > 60, BUN/ Creatinine Ratio 17, Glucose Level 85, Calcium Level 8.6, Magnesium Level 2.0, Total Bilirubin 0.4, Aspartate Amino Transf (AST/SGOT) 61H, Alanine Aminotransferase (ALT/SGPT) 161H, Alkaline Phosphatase 141H, Total Protein 6.5, Albumin 2.9L Microbiology 11/03/17 Blood Culture - Preliminary, Resulted No growth 11/03/17 MRSA Screen - Final, Complete MRSA not isolated 11/03/17 Gram Stain - Final, Resulted 11/03/17 Anaerobic Culture - Preliminary, Resulted No anaerobes isolated 11/03/17 Surgical Culture - Preliminary, Resulted Strep, Beta Hemolytic Group A Assessment/Plan Assessment/Plan Plan Sepsis secondary to cellulitis: 10/29: -started on Vanc and Zosyn in ED -significantly elevated WBC count as well as left shift -no evidence of clot or abscess noted on imaging studies -initially elevated lactate, which responded to fluid bolus and is now WNL -culture results pending, will narrow abx therapy when results returned -Left arm edema, will wrap with compression to see if that helps; pt reports that his left upper arm is always slightly swollen since his surgery, but currently his swelling extends into his forearm as well 10/30: -blood cx show no growth to date, white count elevated from yesterday, CRP remains >15, febrile to Tmax 103 yesterday afternoon, will continue Zosyn and Vanc, recheck labs in AM 10/31: blood cx continue to show no growth to date, white count remains elevated at 29, but stable from yesterday, CRP remains >15, febrile overnight with Tmax 101.7; US done to rule out abscess --> no evidence of abscess. Given that fevers seem to be somewhat improved from previous and Vanc dosing was adjusted after subtherapeutic level, will continue with current broad spectrum abx, recheck labs in AM. 11/01: recurrent fever up to 103 persists as well as leukocytosis of 30 this morning. Will change antibiotics to meropenem and linezolid. No abscess noted on ultrasound and no evidence of joint involvement per symptoms. 11/02: afebrile last 24 hours, WBC slightly decreased and CRP decreased, continue meropenem and linezolid, d/c acetaminophen to watch for recurrent fevers 11/03 febrile to 101 and with WBC persistently elevated near 30, discussed with ID corporate concierge at [facility] who had no further recommendations if no surgical intervention indicated. Will repeat US and consult Dr. Sequeira to evaluate for any surgical intervention. Check arterial US to rule out mycotic anuerysm. Repeat blood culture, UA and CXR given recurrent fever after 24 hours fever free. Check HIV antibodies. 11/04 underwent I&D last night per Dr. Sequeira with fair amount of pus evacuated in spite of no clear abscess on ultrasound. Linezolid discontinued, wound culture with gram positive cocci so far. Dr. Sequeira added clindamycin for possible clostridium. 11/05- remains afebrile and with significant decrease in WBC and CRP today, continue meropenem and clindamycin, anticipate narrowing tomorrow. GAS from wound culture. 11/06 remains afebrile, leukocytosis continues to improve. Hypokalemia 10/30: replace with 40 mEq PO, recheck BMP in AM 10/31: remains low, replaced again today and recheck in AM 11/01: remains low, replace IV and PO and replace magnesium 11/02: persistent, replace aggressively and recheck this evening 11/03 resolved monitor Hypoalbuminemia- encouraged increased intake of lean protein Hypomagnesemia- follow and replace as needed Elevated liver enzymes- worsened today, hepatitis panel negative, will check liver ultrasound 11/04 liver ultrasound unremarkable, LFTs still elevating for unclear etiology, continue to monitor although alk phos slightly decreased today 11/05 improving DVT Ppx: Lovenox, SCDs, Ambulation FEN: Regular Diet Clinical Quality Measures DVT/VTE Risk/Contraindication: Risk Factor Score Per Nursin RFS Level Per Nursing on Admit: 4+=Very High JOSEY MATHIS MD Nov 06, 2017 9:39 am
--- NOTE | 2017-11-06 12:14 | Progress Note ---
Subjective Time Seen by Provider: 11:01 Subjective/Events-last exam Pt seen and arm examined. He states minimal pain and thinks his arm is better. It does hurt to straighten it. Tolerating diet and asking if he can walk around. Review of Systems General: No Chills, No Night Sweats Cardiovascular: No: Chest Pain Objective Exam Vital Signs Date Time Temp Pulse Resp B/P (MAP) Pulse Ox O2 Delivery O2 Flow Rate FiO2 11/06/17 08:00 98.7 68 20 107/61 (76) 96 Room Air 11/06/17 00:00 98.5 75 19 110/64 (79) 98 Room Air 11/05/17 16:00 99.0 82 20 115/72 (86) 97 Room Air I & O 11/06/17 07:00 Intake Total 4088 ml Output Total 4 ml Balance 4084 ml Capillary Refill : Less Than 3 Seconds General Appearance: No Apparent Distress, WD/WN Respiratory: Lungs Clear, Normal Breath Sounds Cardiovascular: Regular Rate, Rhythm Peripheral Pulses: 2+ Radial Pulses (R), 2+ Radial Pulses (L) Extremity: Other (open wound, some occasional spots of ??necrosis, most of wound looks viable. No fluctuance, there is some fullness below incision and above elbow - but feels like just inflammation. There does not appear to be much erythema surrounding open wound, nothing spreading.) Results Lab Laboratory Tests 11/06/17 06:00: White Blood Count 14.9H, Red Blood Count 4.32L, Hemoglobin 12.4L, Hematocrit 37L , Mean Corpuscular Volume 85, Mean Corpuscular Hemoglobin 29, Mean Corpuscular Hemoglobin Concent 34, Red Cell Distribution Width 14.5, Platelet Count 555H, Mean Platelet Volume 9.6, Neutrophils (%) (Auto) 72, Lymphocytes (%) (Auto) 16, Monocytes (%) (Auto) 8, Eosinophils (%) (Auto) 3, Basophils (%) (Auto) 1, Neutrophils # (Auto) 10.7H, Lymphocytes # (Auto) 2.4, Monocytes # (Auto) 1.2H, Eosinophils # (Auto) 0.4H, Basophils # (Auto) 0.1, Sodium Level 136, Potassium Level 4.4, Chloride Level 102, Carbon Dioxide Level 24, Anion Gap 10, Blood Urea Nitrogen 10, Creatinine 0.60, Estimat Glomerular Filtration Rate > 60, BUN/ Creatinine Ratio 17, Glucose Level 85, Calcium Level 8.6, Magnesium Level 2.0, Total Bilirubin 0.4, Aspartate Amino Transf (AST/SGOT) 61H, Alanine Aminotransferase (ALT/SGPT) 161H, Alkaline Phosphatase 141H, Total Protein 6.5, Albumin 2.9L Microbiology 11/03/17 Blood Culture - Preliminary, Resulted No growth 11/03/17 MRSA Screen - Final, Complete MRSA not isolated 11/03/17 Gram Stain - Final, Resulted 11/03/17 Anaerobic Culture - Preliminary, Resulted No anaerobes isolated 11/03/17 Surgical Culture - Preliminary, Resulted Strep, Beta Hemolytic Group A Assessment/Plan Assessment/Plan Assessment/Plan 1. Cellulitis LUE s/p debridement Plan to continue ABX, dressing changes and pain control. WBC finally trending down. Will let Dr. Sequeira take a look and determine if more debridement is necessary. Clinical Quality Measures DVT/VTE Risk/Contraindication: Risk Factor Score Per Nursin RFS Level Per Nursing on Admit: 4+=Very High DACIA GALLEGOS DO Nov 06, 2017 12:14
[2017-11-06] MEDS: HYDROcodone/APAP 5 MG/325 MG (LORTAB) TAB PO PRN (15:55)
[2017-11-06 16:00] VITALS: BP 107/61
[2017-11-06] MEDS: ENOXAPARIN 40 MG/0.4 ML (LOVENOX) SYR SC SCH (17:11)
[2017-11-07 00:40] VITALS: BP 110/68
[2017-11-07] MEDS: CLINDAMYCIN INJECTION 900 MG in NS (IVPB) 50 ML IV SCH ×2 (05:17→13:09)
[2017-11-07 05:48] LABS: BASOPHILS # (AUTO) 0.1 10^3/uL (0.0-0.1); BASOPHILS % (AUTO) 1 % (0-10); EOSINOPHILS # (AUTO) 0.4 10^3/uL (0.0-0.3); EOSINOPHILS % (AUTO) 3 % (0-10); HEMOGLOBIN 12.5 G/DL (13.3-17.7); LYMPHOCYTES # (AUTO) 2.9 X 10^3 (1.0-4.0); LYMPHOCYTES % (AUTO) 21 % (12-44); MEAN CORPUSCULAR HEMOGLOBIN 29 PG (25-34); MEAN PLATELET VOLUME 8.2 FL (7.4-10.4); MONOCYTES # (AUTO) 1.2 X 10^3 (0.0-1.0); MONOCYTES % (AUTO) 9 % (0-12); NEUTROPHILS # (AUTO) 9.4 X 10^3 (1.8-7.8); NEUTROPHILS % (AUTO) 67 % (42-75); PLATELET COUNT 669 10^3/uL (130-400); RED BLOOD COUNT 4.35 10^6/uL (4.35-5.85); RED CELL DISTRIBUTION WIDTH 13.9 % (10.0-14.5)
[2017-11-07] MEDS: MEROPENEM 500 MG/NS 100 ML IVPB IV SCH ×4 (06:03→12:08)
[2017-11-07 07:08] LABS: ALANINE AMINOTRANSFERASE 121 U/L (0-55); ALKALINE PHOSPHATASE 146 U/L (40-136); BILIRUBIN,TOTAL 0.4 MG/DL (0.1-1.0); BUN/CREATININE RATIO 20; CALCIUM 8.9 MG/DL (8.5-10.1); CARBON DIOXIDE 23 MMOL/L (21-32); CHLORIDE 100 MMOL/L (98-107); CREATININE SERUM 0.64 MG/DL (0.60-1.30); GFR ESTIMATED > 60; GLUCOSE 87 MG/DL (70-105); POTASSIUM 4.7 MMOL/L (3.6-5.0); SODIUM 135 MMOL/L (135-145); TOTAL PROTEIN 6.9 GM/DL (6.4-8.2)
[2017-11-07 08:00] VITALS: BP 109/61
[2017-11-07] MEDS: LACTOBACILLUS Acidoph/Bulgar (LACTINEX/FLORANEX) TAB PO SCH (09:19)
[2017-11-07 10:11] LABS: HEMATOCRIT 40 % (40-54)
[2017-11-07 10:12] LABS: MEAN CORPUSCULAR HGB CONC 32 G/DL (32-36); MEAN CORPUSCULAR VOLUME 92 FL (80-99)
[2017-11-07] MEDS ORDERED: IBUP-1780 PO (11:25)
[2017-11-07] MEDS ORDERED: AMOX-358 PO (11:30)
--- NOTE | 2017-11-07 11:31 | Discharge Instructions ---
Discharge [facility] Discharge Medications New, Converted or Re-Newed RX: Transmitted to Pharmacy New Medications: Amoxicillin/Potassium Clav (Augmentin 875-125 Tablet) 1 Each Tablet 1 EACH PO BID, #14 TAB 0 Refills Ibuprofen (Ibuprofen) 800 Mg Tablet 800 MG PO Q8H PRN for PAIN-MILD OR TEMPATURE, #60 TAB 0 Refills Patient Instructions Goal/Follow Up Appt: NOVEMBER 11 at 1:[address] MATHIS Patient Instructions: 1. VENGA A LA CLINICA CADA EMA PARA CAMBIAR LOS MATERIALES SOBRE [place] BRA[place]. 2. TOME EL IBUPROFEN PARA DOLOR 3. TOME TODOS LOS ANTIBIOTICOS. 4. VENGA A LA CLINICA PARA FORTE THONY CON LA MEDICA (DEL). Return to The Hospital For: FREDDIE ESPINO KARINA EN [place] Activity & Diet Discharge Diet: No Restrictions Activity as Tolerated: Yes Copy Copies To 1: JOSEY MATHIS MD, JULIE A MD Nov 07, 2017 11:30 am
--- NOTE | 2017-11-07 11:32 | Discharge Summary ---
Diagnosis/Chief Complaint Date of Admission Oct 28, 2017 at 19:45 Date of Discharge Chief Complaint/HPI Chief Complaint/HPI 32 year old male complaints of swelling and pain in left armpit after falling ~ 3 days ago and hitting on bike handle. He was seen in walk in clinic earlier in the day yesterday and started on PO Bactrim DS and given IM Rocephin x1 and instructed to return 1/2 for a recheck or proceed to ED if symptoms worsen. He presented to the ED last night after pain and swelling continued to get worse. He also reported fevers off and on, although he did not take his temperature; overnight he was find to have a Tmax of 102.5. Discharge Summary-Simple/Stand Consultations Discharge Physical Examination Allergies: Coded Allergies: No Known Drug Allergies (Unverified , 10/28/17) Vitals & I&Os Vital Sign - Last 12Hours Date Time Temp Pulse Resp B/P (MAP) Pulse Ox O2 Delivery O2 Flow Rate FiO2 11/07/17 08:00 99.4 70 18 109/61 (77) 100 Room Air Intake and Output 11/07/17 00:00 Intake Total 1636 ml Output Total 3 ml Balance 1633 ml Hospital Course See final discharge diagnosis. Discharge Instructions to patient/family Please see electronic discharge instructions given to patient. Discharge Medications Reviewed and agree with Discharge Medication list on patient's Discharge Instruction sheet Clinical Quality Measures DVT/VTE Risk/Contraindication: Risk Factor Score Per Nursin RFS Level Per Nursing on Admit: 4+=Very High GIRISH LAINEZ MD Nov 07, 2017 11:32
[2017-11-07] MEDS ORDERED: INFLUENZA TRIvalent 2017-2018 0.5 ML/45 MCG SYR IM ONE (13:01)
[2017-11-07 14:40] VITALS: BP 109/61
--- NOTE | 2017-11-07 14:54 | Progress Note-Standard ---
Standard Progress Note Progress Notes/Assess & Plan Date Seen by Provider: Nov 07, 2017 Time Seen by Provider: 13:01 Progress/Assessment & Plan uneventful night. Afebrile. Leukocytosis persists. Wound examined and appears to be consistent with postoperative changes. No necrosis of additional tissue or skin. Left axillary lymph node nontender and much softer. Edema over the dorsum of the hand resolved. Gram-positive cocci on Gram stain. We' ll continue antibiotics. Afebrile and his leukocytosis has improved dramatically. Swelling along the left upper extremity resolved. Wound appears to be healing reasonably well. Drains intact. Streptococcus on culture. Could be discharged home on oral antibiotics with wound care for arrangements. Final Diagnosis Abscess of left upper arm FELICITAS CH MD Nov 07, 2017 14:54
== END 2017-11-07 14:40 | disposition home or self-care (01) | DRG 854 ==
LOC: ER 18:06 → 4TH 19:45
PROVIDERS: ADMIT Family Medicine; ATTEND Family Medicine
PROC: 0K9800Z Drainage of Left Upper Arm Muscle with Drainage Device, Open Approach (ICD-10-PCS; principal; 2017-11-03 18:03)
DX: A41.9 Sepsis, unspecified organism (principal); L03.114 Cellulitis of left upper limb; R60.0 Localized edema; E87.6 Hypokalemia; E83.51 Hypocalcemia; E88.09 Other disorders of plasma-protein metabolism, not elsewhere classified; E83.42 Hypomagnesemia; R79.89 Other specified abnormal findings of blood chemistry; B95.2 Enterococcus as the cause of diseases classified elsewhere; B95.5 Unspecified streptococcus as the cause of diseases classified elsewhere; V18.0XXD Pedal cycle driver injured in noncollision transport accident in nontraffic accident, subsequent encounter; Z23 Encounter for immunization
CPT/HCPCS: 36415; 71010; 71046; 73060; 76705; 76881; 80048; 80053; 80074; 80202; 81000; 83605; 83735; 85007; 85025; 85027; 85045; 85379; 85610; 85730; 86141; 86703; 87040; 87070; 87075; 87077; 87081; 87205; 90714; 93931; 96361; 96365; 96375; 96376

== ENCOUNTER → 2017-11-11 | Outpatient (CLI) | payer SELFPAY ==
[~2017-11-11] MED LIST: AMOX-358 PO; IBUP-1780 PO
[2017-11-11] MEDS: CATHETER FLUSH 10 ML SYR IV PRN (16:33)
[2017-11-11] MEDS: IOHEXOL 350 MG/ML 150 ML (OMNIPAQUE 350) VIAL IV ONE (16:33)
--- NOTE | 2017-11-11 16:42 | Diagnostic Imaging Report ---
PROCEDURE: CT chest with contrast only. TECHNIQUE: Multiple contiguous axial images were obtained through the chest after administration of intravenous contrast. 3-D MIP images were also produced. INDICATION: Dyspnea for 3 days FINDINGS: There is good opacification of pulmonary arteries. The thoracic aorta is of normal caliber without evidence of dissection. Note is made of common origin of the innominate artery and left common carotid artery. There is no evidence of consolidation. No significant pleural or pericardial fluid is identified. There is no evidence of pathologic adenopathy in the mediastinum. Upper abdominal sections reveal no evidence of additional abnormality. IMPRESSION: No CTA evidence of pulmonary embolism or other acute abnormality in the thorax. Dictated by: Dictated on workstation # [id number]
== END ==
LOC: RAD 15:06
PROVIDERS: ATTEND Family Medicine
DX: R06.00 Dyspnea, unspecified (principal)
CPT/HCPCS: 71260